=== PATIENT | female | born 1950 | race Caucasian/White ===

== ENCOUNTER → 2017-12-29 02:01 | Outpatient (CLI) | payer MEDICARE, OTHER, SELFPAY ==
[2017-12-29 11:07] LABS: HCT 40.3 % (36.0-46.0); Mean Corp. HGB Concentration 32.3 g/dL (32.0-36.0); Mean Corpuscular Hemoglobin 27.9 pg (27.0-33.0); Mean Corpuscular Volume 86.5 fL (80-95); Mean Platelet Volume 11.9 fL (8.0-11.0); Platelet Count 182 x1000/uL (130-400); RBC 4.66 m/cumm (4.00-5.20); RBC Distribution Width 14.9 % (11.7-14.6); White Blood Cell Count 6.82 k/cumm (4.4-10.8)
[2017-12-29 11:17] LABS: ALT 18 U/L (12-78); AST 15 U/L (15-37); Albumin 3.6 g/dL (3.4-5.0); Alkaline Phosphatase 89 U/L (46-116); Anion Gap 5.9 mmol/L (3-11); BUN 16 mg/dL (7-18); Bilirubin, Total 0.3 mg/dL (0.2-1.0); CO2 30.1 mmol/L (21.0-32.0); CREATININE 0.67 mg/dL (0.55-1.02); Calcium 8.7 mg/dL (8.5-10.1); Chloride 105 mmol/L (98-107); Cholesterol 276 mg/dL (50-200); Glucose 98 mg/dL (70-100); HDL Cholesterol 54 mg/dL (40-60); LDL CHOLESTEROL 115 mg/dL (<100); Potassium 4.3 mmol/L (3.5-5.1); Sodium 141 mmol/L (136-145); Total Protein 6.5 g/dL (6.4-8.2); Triglyceride 270 mg/dL (30-150)
[2017-12-29 11:38] LABS: Hemoglobin A1C 6.1 % (4.5-6.2)
== END ==
PROVIDERS: PCP Family Medicine; Visit Provider Family Medicine
DX: E78.5 Hyperlipidemia, unspecified (principal); I10 Essential (primary) hypertension; Z86.39 Personal history of other endocrine, nutritional and metabolic disease
CPT/HCPCS: 36415; 80053; 80061; 83721; 85027; 83036

== ENCOUNTER 2018-03-07 00:45 | Outpatient (CLI) | payer MEDICARE, OTHER, SELFPAY ==
--- NOTE | 2018-03-07 06:17 | DI.RAD_ITS ---
SYMPTOM/DIAGNOSIS: LLL PNEUMONIA, J18.1 PA AND LATERAL CHEST: Comparison is made with 06/16/09. Heart size and pulmonary vasculature are within normal limits. The lungs are clear and well expanded. No effusions or pneumothoraces are identified. Degenerative changes are seen in the spine. IMPRESSION: No acute pulmonary process.
[2018-03-07 08:34] LABS: Abs Immature Grans 0.02 k/cumm (0.0-0.09); Absolute Basophil Count 0.05 k/cumm (0.0-0.2); Absolute Eosinophil Count 0.55 k/cumm (0.0-0.7); Absolute Lymphocyte Count 2.56 k/cumm (1.2-3.4); Absolute Monocyte Count 0.65 k/cumm (0.11-0.7); Absolute Neutrophil Count 4.85 k/cumm (1.2-6.7); Basophils % 0.6; Eosinophils % 6.3; HGB 13.5 g/dL (12.0-15.5); Immature Grans % 0.2; Lymphocytes % 29.5; Mean Corp. HGB Concentration 32.9 g/dL (32.0-36.0); Mean Corpuscular Hemoglobin 28.6 pg (27.0-33.0); Mean Corpuscular Volume 86.9 fL (80-95); Mean Platelet Volume 10.5 fL (8.0-11.0); Monocytes % 7.5; Neutrophils % 55.9; Platelet Count 211 x1000/uL (130-400); RBC 4.72 m/cumm (4.00-5.20); RBC Distribution Width 14.5 % (11.7-14.6); White Blood Cell Count 8.68 k/cumm (4.4-10.8)
[2018-03-07 09:45] LABS: ALT 25 U/L (12-78); AST 16 U/L (15-37); Albumin 3.9 g/dL (3.4-5.0); Alkaline Phosphatase 99 U/L (46-116); Anion Gap 4.9 mmol/L (3-11); BUN 19 mg/dL (7-18); Bilirubin, Total 0.3 mg/dL (0.2-1.0); CO2 33.1 mmol/L (21.0-32.0); CREATININE 0.79 mg/dL (0.55-1.02); Calcium 9.3 mg/dL (8.5-10.1); Chloride 101 mmol/L (98-107); Cholesterol 191 mg/dL (50-200); Glucose 95 mg/dL (70-100); HDL Cholesterol 58 mg/dL (40-60); LDL CHOLESTEROL 66 mg/dL (<100); Potassium 4.1 mmol/L (3.5-5.1); Sodium 139 mmol/L (136-145); Triglyceride 197 mg/dL (30-150)
== END 2018-03-07 01:05 ==
PROVIDERS: PCP Family Medicine; Visit Provider Family Medicine
DX: J18.1 Lobar pneumonia, unspecified organism; I10 Essential (primary) hypertension; E78.5 Hyperlipidemia, unspecified
CPT/HCPCS: 36415; 80053; 80061; 83721; 71046; 85025

== ENCOUNTER 2018-12-29 02:22 | Outpatient (CLI) | payer MEDICARE, OTHER, SELFPAY ==
[2018-12-29 08:45] LABS: ALT 20 U/L (14-59); AST 12 U/L (15-37); Albumin 3.8 g/dL (3.4-5.0); Alkaline Phosphatase 90 U/L (46-116); Anion Gap 7.8 mmol/L (3-11); BUN 14 mg/dL (7-18); Bilirubin, Total 0.4 mg/dL (0.2-1.0); CO2 30.2 mmol/L (21.0-32.0); CREATININE 0.78 mg/dL (0.55-1.02); Calcium 9.1 mg/dL (8.5-10.1); Calculated LDL 166 mg/dL; Chloride 103 mmol/L (98-107); Cholesterol 269 mg/dL (50-200); Glucose 104 mg/dL (70-100); HDL Cholesterol 51 mg/dL (40-60); Potassium 3.9 mmol/L (3.5-5.1); Sodium 141 mmol/L (136-145); Triglyceride 264 mg/dL (30-150)
== END 2018-12-29 02:42 ==
PROVIDERS: PCP Family Medicine; Visit Provider Family Medicine
DX: E78.5 Hyperlipidemia, unspecified (principal); I10 Essential (primary) hypertension
CPT/HCPCS: 36415; 80053; 80061

== ENCOUNTER 2019-05-10 01:57 | Outpatient (CLI) | payer MEDICARE, OTHER, SELFPAY ==
[2019-05-10 10:39] LABS: ALT 21 U/L (14-59); Calculated LDL 175 mg/dL; Cholesterol 295 mg/dL (<200); Glucose 98 mg/dL (74-106); HDL Cholesterol 56 mg/dL (40-60); Triglyceride 321 mg/dL (<150)
== END 2019-05-10 02:17 ==
PROVIDERS: PCP Family Medicine; Visit Provider Family Medicine
DX: I10 Essential (primary) hypertension (principal); E78.5 Hyperlipidemia, unspecified
CPT/HCPCS: 36415; 80061; 82947; 84460

== ENCOUNTER 2019-05-24 08:42 | Outpatient (CLI) | payer MEDICARE, OTHER, SELFPAY ==
[2019-05-24 11:39] LABS: Calcium 9.4 mg/dL (8.5-10.1)
[2019-05-25 11:21] LABS: Parathyroid Hormone,Intact 75 pg/mL (19-88)
== END 2019-05-24 09:02 ==
PROVIDERS: PCP Family Medicine; Visit Provider Nurse Practitioner
DX: E55.9 Vitamin D deficiency, unspecified (principal); R07.0 Pain in throat; I10 Essential (primary) hypertension; E78.5 Hyperlipidemia, unspecified
CPT/HCPCS: 36415; 82306; 82310; 83970; 84443

== ENCOUNTER 2019-05-25 01:17 | Outpatient (CLI) | payer MEDICARE, OTHER, SELFPAY ==
--- NOTE | 2019-05-25 13:56 | DI.US_ITS ---
EXAM: US SOFT TISSUE HEAD OR NECK CLINICAL HISTORY: hx parathyroid removal,THROAT PAIN, R07.0 TECHNIQUE: Ultrasound performed using standard protocol. COMPARISON: PELVIS TRANSVAG from 08/28/2015 FINDINGS: Ultrasound of the cervical region was performed to evaluate questionable region of neck pain. No mas s identified. Unremarkable appearance of cervical lymph nodes and thyroid. IMPRESSION: Negative soft tissue ultrasound of cervical region on the left.
== END 2019-05-25 01:37 ==
PROVIDERS: PCP Family Medicine; Visit Provider Nurse Practitioner
DX: R07.0 Pain in throat (principal)
CPT/HCPCS: 76536

== ENCOUNTER 2020-01-10 01:32 | Outpatient (CLI) | payer MEDICARE, OTHER, SELFPAY ==
--- NOTE | 2020-01-10 13:54 | DI.DEXA_ITS ---
EXAM: XR DEXA BONE DENSITY W/WO KIRSTEN CLINICAL HISTORY: POSTMENOPAUSAL SCREENING, Z78.0 TECHNIQUE: COMPARISON: Comparison examination is dated 10/26/2016. FINDINGS: Lateral Spine Image: Unremarkable. No compression deformities identified. Left hip: Total T-Score: -1.6. This compares with -1.4 on the prior examination. Total Z-Score: 0. T- and Z-scores: Consistent with osteopenia and increased fracture risk. Lumbar Spine: Total T-Score: -2.3. This compares with -2.5 on the prior examination. Total Z-Score: -0.1. T- and Z-scores: Osteopenia and increased fracture risk. IMPRESSION: Findings consistent with osteopenia in the lumbar spine and left hip.
== END 2020-01-10 01:52 ==
PROVIDERS: PCP Family Medicine; Visit Provider Family Medicine
DX: Z78.0 Asymptomatic menopausal state; M85.89 Other specified disorders of bone density and structure, multiple sites
CPT/HCPCS: 77080

== ENCOUNTER 2020-01-18 01:06 | Outpatient (CLI) | payer MEDICARE, OTHER, SELFPAY ==
[2020-01-18 12:43] LABS: HCT 46.4 % (36.0-46.0); HGB 14.8 g/dL (11.2-15.7); MCHC 31.9 % (32.0-36.0); MCV 87.9 fL (80-95); MPV 11.3 fL (8.0-11.0); Platelet Count 215 10^3/uL (130-400); RBC 5.28 10^6/uL (3.93-5.22); RDW 14.6 % (11.7-14.6); RDW-SD 46.9 fL; WBC 7.69 10^3/uL (4.4-10.8)
[2020-01-18 13:16] LABS: ALT 22 U/L (14-59); AST 12 U/L (15-37); Albumin 4.1 g/dL (3.4-5.0); Alkaline Phosphatase 89 U/L (46-116); Anion Gap 8.6 mmol/L (3-11); BUN 19 mg/dL (7-18); Bilirubin, Total 0.6 mg/dL (0.2-1.0); CO2 30.4 mmol/L (21.0-32.0); CREATININE 0.82 mg/dL (0.55-1.02); Calcium 9.5 mg/dL (8.5-10.1); Calculated LDL 248 mg/dL (<100); Chloride 103 mmol/L (98-107); Cholesterol 356 mg/dL (<200); Glucose 102 mg/dL (74-106); HDL Cholesterol 65 mg/dL (40-60); Potassium 4.3 mmol/L (3.5-5.1); Sodium 142 mmol/L (136-145); TSH (W/Ref FT4) 1.46 uIU/mL (0.36-3.74); Total Protein 7.3 g/dL (6.4-8.2); Triglyceride 215 mg/dL (<150)
== END 2020-01-18 01:26 ==
PROVIDERS: PCP Family Medicine; Visit Provider Family Medicine
DX: I10 Essential (primary) hypertension (principal); E78.5 Hyperlipidemia, unspecified; G47.411 Narcolepsy with cataplexy
CPT/HCPCS: 36415; 80053; 80061; 85027; 84443

== ENCOUNTER 2020-02-06 00:48 | Outpatient (CLI) | payer MEDICARE, OTHER, SELFPAY ==
--- NOTE | 2020-02-06 13:11 | DI.MAMMO_ITS ---
EXAM: MAMMO SCREENING CLINICAL HISTORY: screening,Z12.31 TECHNIQUE: Mammograms were interpreted according to the usual protocol including computer analysis w [employer] CAD system, tomosynthesis and C-view imaging. COMPARISON: FINDINGS: The breasts are of moderate density with fairly symmetrical distribution fibroglandular tissue. No do minant mass or clumped microcalcification is identified in either breast. The current examination is compared with previous examinations including September 2016 and there has been no gross interval change i n appearance in comparison with the prior studies. IMPRESSION: No specific evidence of malignancy at this time. Routine screening examinations are suggested at year ly intervals in this age group according to the ACS ACR guidelines. BI-RADS Category 1 - Negative Breast Density - Category B - Scattered areas of fibroglandular density
== END 2020-02-06 01:08 ==
PROVIDERS: PCP Family Medicine; Visit Provider Family Medicine
DX: Z12.31 Encounter for screening mammogram for malignant neoplasm of breast (principal)
CPT/HCPCS: 77063; 77067

== ENCOUNTER 2020-05-08 02:20 | Outpatient (CLI) | payer MEDICARE, OTHER, SELFPAY ==
[2020-05-08 13:14] LABS: ALT 23 U/L (14-59); Calculated LDL 94 mg/dL (<100); Cholesterol 198 mg/dL (<200); HDL Cholesterol 57 mg/dL (40-60); Triglyceride 238 mg/dL (<150)
== END 2020-05-08 02:40 ==
PROVIDERS: PCP Family Medicine; Visit Provider Family Medicine
DX: E78.5 Hyperlipidemia, unspecified (principal)
CPT/HCPCS: 36415; 80061; 84460

== ENCOUNTER 2021-03-16 03:14 | Outpatient (CLI) | payer MEDICARE, OTHER, SELFPAY ==
[2021-03-16 14:35] LABS: Calculated LDL 116 mg/dL (<100); Cholesterol 228 mg/dL (<200); HDL Cholesterol 56 mg/dL (40-60); Triglyceride 283 mg/dL (<150)
== END 2021-03-16 03:15 | disposition home or self-care (01) ==
LOC: LOS 03:15
PROVIDERS: PCP Nurse Practitioner Family; Visit Provider Nurse Practitioner Family
DX: E78.5 Hyperlipidemia, unspecified (principal)
CPT/HCPCS: 36415; 80061

== ENCOUNTER 2021-11-18 01:11 | Outpatient (CLI) | payer MEDICARE, OTHER, SELFPAY ==
--- OUTSIDE RECORDS SUMMARY | 2021-11-18 01:15 | XMS_ITS | Encounter Summary ---
:1950 Author Organization [facility] [place] [address] Care Team Providers Name Role Phone Cuauhtemoc Zoila Robles APRN Primary Care Provider Encounter Details Date Type Department Care Team Description 03/07/2017 Office Visit General Surgery at De[facility] Waters S/James parathyroidectomy MIGUEL MD Jamaal [facility] [address] [place], [place] GENERAL SURGERY [address] [place] [address] [phone] Social History Tobacco Use Types Packs/Day Years Used Date Never Smoker Smokeless Tobacco: Never Used Alcohol Use Standard Drinks/Week Comments Yes 1 (1 standard drink = 0.6 oz pure alcoho l) occasional Alcohol Habits Answer Date Recorded How often do you have a drink containing alcohol? Not asked How many drinks containing alcohol do you have on a typical Not asked day when you are drinking? How often do you have six or more drinks on one occasion? No t asked Comment: occasional 01/11/2017 Sex Assigned at Date Recorded Not on file documented as of this encounter Last Filed Vital Signs Vital Sign Reading Time Taken Comments Blood Pressure - - Pulse - - Temperature - - Respiratory Rate - - Oxygen Saturation - - Inhaled Oxygen Concentration - - Weight 76.2 kg (167 lb 14.4 oz) 03/07/2017 10:03 AM EST Height - - Body Mass Index 30.71 12/09/2016 10:09 AM EDT documented in this encounter Progress Notes Dea Waters MD - 03/07/2017 10:45 AM EST Parathyroidectomy Post-Op Visit Subjective: Ms. Eloisa Hinson is a very pleasant 67 y.o. year old female who is 6 weeks s/p left lower parathyroidectomy for primary hyperparathyroidism. She is doing very well without complaints. She is not having hypocalcemic symptoms or issues with pain or difficulty swallowing. Exam: There were no vitals filed for this visit. Healing anterior neck incision with underlying healing ridge. No hematoma or seroma. Voice appears normal. Pathology results: A - Left lower parathyroid Parathyroid adenoma, ??with adjacent thymic tissue Labs: Lab Results Component Value Date CALCIUM 10.0 03/07/2017 Assessment and Plan: Ms. Eloisa Hinson is a very pleasant 67 y.o. year old female s/p targeted parathyroidectomy for primary hyperparathyroidism who is doing very well post- operatively without evidence of complications. Idiscussed the pathology results with the patient and recommended no further treatment. Calcium was checked today and was normal. She does not need to continue taking post-operative supplemental doses of calcium and vitamin D. I did encourage her to discuss calcium supplementation for general bone health purposes with her PCP. I explained that she should have her serum calcium checked annually, and that we do not need to follow PTH levels unless her calcium level rises again. I discussed scar massage with vitamin E to aid in incisional appearance and discussed the importanceof UV light protection on scar healing. Overall, she is doing very well post-operatively and I recommended follow up with me on an as neededbasis hereafter. documented in this encounter Plan of Treatment Not on filedocumented as of this encounter Visit Diagnoses Diagnosis S/P parathyroidectomy Other postprocedural status documented in this encounter Care Teams Experience Planning Strategist Relationship Specialty Start Date End Date Zoila Posadas APRN PCP - General Family Medicine 10/27/16 documented as of this encounter
--- OUTSIDE RECORDS SUMMARY | 2021-11-18 01:15 | XMS_ITS | Encounter Summary ---
:1950 Author Organization [facility] [place] [address] Care Team Providers Name Role Phone Cuauhtemoc Zoila Robles APRN Primary Care Provider Encounter Details Date Type Department Care Team Description 03/07/2017 Laboratory Appointment Lab 3L [facility] [place] [address] Social History Tobacco Use Types Packs/Day Years [...] on file documented as of this encounter Plan of Treatment Not on filedocumented as of this encounter Procedures Procedure Name Priority Date/Time Associated Diagnosis Comme nts CALCIUM STAT 03/07/2017 9:41 AM S/P parathyroidectomy Results for this EST procedure are i n the results section. documented in this encounter Results Calcium (03/07/2017 9:41 AM EST) P athologist Signature Calcium 10.0 8.5 - 10.5 DEBI [place] mg/dL [facility] Specimen Anatomical Collection Method Collection Time Receive d Time (Source) Location / / Volume Laterality Blood specimen 03/07/2017 9:41 AM 017 9:50 (specimen) EST AM EST Resulting Agency Comment Spec In Lab Dea Waters MD CHEMISTRY ORDERABLES Performing Organization Address City/State/ZIP Code Phon e Number [place] [phone] documented in this encounter Visit Diagnoses Diagnosis S/P parathyroidectomy Other postprocedural status documented in this encounter Care Teams Process Development Technician Relationship Specialty Start Date End Date Zoila Posadas APRN PCP - General Family Medicine 10/27/16 documented as of this encounter
--- OUTSIDE RECORDS SUMMARY | 2021-11-18 01:15 | XMS_ITS | Clinical Summary ---
:1950 Author Organization [facility] [place] [address] Care Team Providers Name Role Phone Cuauhtemoc Zoila Robles APRN Primary Care Provider Allergies No known active allergies Medications Medication Sig Dispensed Refills Start Date End Date Status Cholecalciferol, Take 6,000 Units 0 Active Vitamin D3, 5,000 unit by mouth daily. Tablet cyanocobalamin 1,000 Take 1,000 mcg by 0 Active mcg Tablet mouth daily. aspirin 81 mg Tablet, Take 81 mg by 0 Active Delayed Release (E.C.) mouth daily. lisinopril Take 1 tablet by 90 tablet 0 11/10/2016 A ctive (PRINIVIL;ZESTRIL) 20 mouth daily. PCP mg Tablet to take over prescribing once script runs out. acetaminophen Take 2 tablets by 30 tablet 1 01/19/2017 Active (TYLENOL) 325 mg mouth every 4 Tablet hours as needed for Pain. Additional Information Patient not taking. 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 Primary hyperparathyroidism 09/24/2014 Parathyroid adenoma 09/24/2014 Hypercalcemia 09/24/2014 Osteopenia 09/24/2014 Transient confusion 09/24/2014 Disturbed concentration 09/24/2014 Lichen sclerosus et atrophicus 08/06/2013 Immunizations Name Administration Dates Next Due Influenza Vaccine PF, Quadrivalent 04/07/2015 Influenza Vaccine, Live, Intranasal, Quadrivalent 03/04/2008 Pneumococcal Polyvalent 23 06/24/2014 Td Vaccine, Absorbed, PF, Adult 06/19/2012, 01/29/2002 Tdap Vaccine 06/19/2012 Social History Tobacco Use Types Packs/Day Years [...] Assigned at Date Recorded Not on file Last Filed Vital Signs Vital Sign Reading Time Taken Comments Blood Pressure 164/102 01/19/2017 11:15 AM EDT Pulse 70 01/19/2017 6:19 AM EDT Temperature 36.6 ??C (97.9 ??F) 01/19/2017 9:58 AM EDT Respiratory Rate 14 01/19/2017 10:45 AM EDT Oxygen Saturation 91% 01/19/2017 11:15 AM EDT Inhaled Oxygen Concentration - - Weight 76.2 kg (167 lb 14.4 oz) 03/07/2017 10:03 AM EST Height 157.5 cm (5' 2) 12/09/2016 10:09 AM EDT Body Mass Index 30.71 12/09/2016 10:09 AM EDT Plan of Treatment Health Maintenance Due Date Last Done Comments Covid-19 Vaccine (#1) 01/27/1955 Hepatitis C Screening 01/27/1966 Lipid Screening 01/27/1966 Breast Cancer Share Decision Needed 1988 Colonoscopy 01/27/1993 Breast Cancer screening 01/27/1998 Zoster vaccine (1 of 2) 01/27/1998 Bone Density Scan 01/27/2013 Pneumoccocal Vaccine: 65+ (2 - PCV) 06/24/2015 06/24/2014 Influenza (Flu) vaccine (1 of 1 - 12/31/2021 04/07/2015, Influenza standard series) Tetanus vaccine 06/19/2022 06/19/2012, 06/19/2012, 01/29/2002 Tdap adult Completed 06/19/2012 Insurance Payer Benefit Plan / Subscriber ID Effective Dates Phone Addre ss Type Group MEDICARE MEDICARE PART A [id number] 2012-Present [phone] SEC[address] & [address] [place] [id number] LIZBETH NIEVES [id number] 1990-Domenico [facility] OFFICE OF [facility] [address] [address] [place] [address] Advance Directives Documents on File Type Date Recorded Patient Insurance Verification Specialist Explanati on Advance Directives and Living 01/12/2017 11:46 AM Will Latest Code Status on File Code Status Date Activated Date Inactivated Comments Full Code 01/19/2017 7:08 AM 01/19/2017 12:33 PM Does patient have capacity to make decision: Yes Care Teams [employer] Crewmember Relationship Specialty Start Date End Date Zoila Posadas APRN PCP - General Family Medicine 10/27/16
--- OUTSIDE RECORDS SUMMARY | 2021-11-18 01:15 | XMS_ITS | Encounter Summary ---
:1950 Author Organization [facility] [place] [address] Care Team Providers Name Role Phone Cuauhtemoc Zoila Robles APRN Primary Care Provider Encounter Details Date Type Department Care Team Description 01/20/2017 Telephone General Surgery at [facility] Dea Waters MD [facility] [place] [address] GENERAL SURGERY [phone] [place] [phone] (Wo rk) Social History Tobacco Use Types Packs/Day Years [...] on file documented as of this encounter Miscellaneous Notes Telephone Encounter - Dea Waters MD - 01/20/2017 9:11 AM EDT Contacted by patient's granddaughter. Ms. Hinson has been throwing up since 2am, not on any narcotics. Ate a small amount last night, but unable to eat this morning. Has had a BM. Vomit has been what she's eaten. Feels like she has a head cold, has a headache around her face, jaw hurts, putting cold cloth. Doesn't typically get headaches. BP 137/73 range. Wondering whether she should take lisinopril 20mg, which I said she should. Incision clean. No significant swelling. No numbness/tingling. Told patient's granddaughter to continue supportive care. If vomiting does not resolve, she should go to her PCP or the ED. This is likely residual from anesthesia. documented in this encounter Plan of Treatment Not on filedocumented as of this encounter Visit Diagnoses Not on filedocumented in this encounter Care Teams Automatic Mounter Relationship Specialty Start Date End Date Zoila Posadas APRN PCP - General Family Medicine 10/27/16 documented as of this encounter
--- OUTSIDE RECORDS SUMMARY | 2021-11-18 01:15 | XMS_ITS | Encounter Summary ---
:1950 Author Organization [facility] [address] Care Team Providers Name Role Phone Cuauhtemoc Zoila Robles APRN Primary Care Provider Encounter Details Date Type Department Care Team Description 01/21/2017 Telephone General [facility] Dea Waters MD [facility] [place] [address] GENERAL SURGERY [phone] [place] [phone] (Wo rk) Social History Tobacco Use Types [...] Telephone Encounter - Dea Waters MD - 01/21/2017 2:31 PM EDT I called Ms. Eloisa Hinson today to discuss the results of her pathology. Specifically, this demonstrated A - Left lower parathyroid Parathyroid adenoma, ??with adjacent thymic tissue. She is doing well. She feels much better than she did yesterday. The vomiting stopped, she is able to eat, and she feels much stronger. Her voice sounds normal. She is not complaining of perioral numbness/tingling, numbness/tingling in the hands, or muscle spasms. She will taper off her calcium supplementation. I answered her questions, and we will discuss further at her regularly-scheduled postoperative follow up appointment. documented in this encounter Plan of Treatment Not on filedocumented as of this encounter Results Calcium (03/07/2017 9:41 AM EST) athologist Signature Calcium 10.0 8.5 - 10.5 [facility] mg/dL [facility] Specimen Anatomical Collection Method Collection Time Receive d Time (Source) Location / / Volume Laterality Blood specimen 03/07/2017 9:41 AM 017 9:50 (specimen) EST AM EST Resulting Agency Comment Spec In Lab Dea Waters MD CHEMISTRY ORDERABLES Performing Organization Address City/State/Z[place] [address] documented in this encounter Visit Diagnoses Diagnosis S/P parathyroidectomy Other postprocedural status documented in this encounter Care Teams Rotating Field Assembler Relationship Specialty Start Date End Date Zoila Posadas APRN PCP - General Family Medicine 10/27/16 documented as of this encounter
--- OUTSIDE RECORDS SUMMARY | 2021-11-18 01:16 | XMS_ITS | Encounter Summary ---
:1950 Author Organization [facility] [place] [address] Care Team Providers Name Role Phone Zoila Posadas Travis OKEEFE Primary Care Provider Reason for Visit Reason Comments Establish Care PRIMARY HYPERPARATHYROIDISM Consultation (Routine) - Closed Specialty Diagnoses / Procedures Referred By Contact Refer red To Contact General Surgery Diagnoses Primary hyperparathyroidism Noemy Bay Sorensen, Meredith MD J, MD [facility] [place] [address] [place] [address] Fax: Referral ID Status Reason Start Date Expiration Date Visits V isits Requested Authorized [id number] Closed Consult, 11/10/2016 11/10/2017 1 1 Test & Treat Encounter Details Date Type Department Care Team Description 12/09/2016 Office Visit General Surgery at [facility] Hyperparathyroidism, KYLER Hinton MD [facility] [address] [place] GENERAL SURGERY [address] [place] [address] [phone] (Wo rk) Social History Tobacco Use Types Packs/Day Years Used Date Never Smoker Smokeless Tobacco: Never Used Sex Assigned at Date Recorded Not on file documented as of this encounter Last Filed Vital Signs Vital Sign Reading Time Taken Comments Blood Pressure 176/81 12/09/2016 10:09 AM EDT Pulse 72 12/09/2016 10:09 AM EDT Temperature - - Respiratory Rate 16 12/09/2016 10:09 AM EDT Oxygen Saturation 97% 12/09/2016 10:09 AM EDT Inhaled Oxygen Concentration - - Weight 74.4 kg (164 lb) 12/09/2016 10:09 AM EDT Height 157.5 cm (5' 2) 12/09/2016 10:09 AM EDT Body Mass Index 30 12/09/2016 10:09 AM EDT documented in this encounter Progress Notes [facility] MD - 12/09/2016 10:15 AM EDT Endocrine Surgery Initial Consultation HPI: Ms. Eloisa Hinson is a very pleasant 66 y.o. year old female who presents for evaluation of primaryhyperparathyroidism as a referral from Dr. Bay. Her hypercalcemia was initially detected a few years ago, and in fact she was worked up for hyperparathyroidism in 2014. At that time, Ca was 11.1with PTH 195. Her DEXA scan showed a T score of -2.8 in the forearm. She was also complaining of increasing memory problems and confusion, which were felt to be out of proportion to her hyperparathyroidism. She was not referred to surgery because of her lack of typical symptoms of hyperparathyroidism, and was referred for neurological workup, which was not done. She was re-referred to endocrinology because an updated DEXA scan showed significant decline in her forearm BMD (now with T score -4.4). There is not a recent history of fractures. There is not history of nephrolithiasis. She reports symptoms of hyperparathyroidism including fatigue,memory loss, nocturia x1, occasional constipation, and b ilateral wrist pain. There is no history of previous anterior neck surgery. She has no family history of endocrinopathies, hypercalcemia or endocrine malignancy. She presents today for consideration ofsurgical management of her hyperparathyroidism. Recent labs: Serum calcium 10.8 mg/dL PTH 245 pg/mL Vitamin D 27 ng/mL Ionized calcium N/A mmol/L Phosphorus N/A mg/dL 24 hr urine calcium N/A mg/24hr Recent studies: Recent DEXA scan: osteoporosis (lowest T score -4.4 in the forearm) Sestamibi scan ([facility], 2015): possible left lower parathyroid abnormality Cervical ultrasound has not yet been performed. Past Medical History: Diagnosis Date ??? 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 when her dog was hit by a car) ??? Hyperparathyroidism ??? Hypertension ??? Osteoporosis Past Surgical History: Procedure Laterality Date ??? INGUINAL HERNIA REPAIR Left Current Outpatient Prescriptions on File Prior to Visit Medication Sig Dispense Refill ??? lisinopril (PRINIVIL;ZESTRIL) 20 mg Tablet Take 1 tablet by mouth daily. PCP to take over prescribing once script runs out. 90 tablet 0 ??? Cholecalciferol, Vitamin D3, 5,000 unit Tablet Take 6,000 Units by mouth daily. ??? cyanocobalamin 1,000 mcg Tablet Take 1,000 mcg by mouth daily. ??? aspirin 81 mg Tablet, Delayed Release (E.C.) Take 81 mg by mouth daily. No current facility-administered medications on file prior to visit. Allergies as of 12/09/2016 ??? (No Known Allergies) Family History: Father of liver issues. Mother of abdominal cancer. Brother living with pancreatic cancer. Sister of heart problems and some unspecified cancer. No thyroid cancer. No pituitary, pancreas or adrenal tumors. No parathyroid disease. Social History: retired seamstress. . 4 children, 10 grandchildren, and 4 great-grandchildren. Nonsmoker. Occasional glass of wine. Very active--stacks wood, pulls it on a sled. No professional public speaking or singing Review of Systems: Negative/Normal Positive/Abnormal Energy Level [] Fatigue Fever [x] Appetite [x] Weight Loss/Gain [x] ENT [x] Cardiovascular [x] Respiratory [x] Gastrointestinal [x] Bleeding [x] Bruising [x] Genitourinary [x] Musculoskeletal [] Some aching in bones (wrists) Endocrine [x] Neuro [x] Psych [] Has episodes of cataplexy with traumatic events (i.e. When dog was hit by a car, she stood in the middle of the road) Encounter Vitals: BP 176/81 (BP Location (NBP): Right arm, Patient Position: Sitting, BP Cuff Sizes: Adult (25-34 cm)) Pulse 72 Resp 16 Ht 157.5 cm (5' 2) Wt 74.4 kg (164 lb) SpO2 97% BMI 30 kg/m2 Physical Exam: System Normal Abnl Findings General [x] [] Well nourished, appears well Skin [x] [] Warm and dry Neck [x] [] No thyromegaly, no masses, trachea midline Lymph Nodes [x] [] No cervical lymphadenopathy Lungs [x] [] Normal respiratory effort, clear to auscultation bilaterally Cardiovascular [x] [] Regular rate and rhythm, no murmurs Extremities [x] [] Warm, no edema, full ROM Neuro [x] [] Motor intact, voice normal Psych [x] [] Normal mood and affect; responds to questions appropriately Procedures performed this visit: Thyroid, Parathyroid and Cervical Ultrasound I performed a thyroid, parathyroid and cervical ultrasound at the time of the clinic visit today using the 12 mHz linear ultrasound transducer. The thyroid, parathyroid and central and bilateral lateral neck lymph node basins were evaluated. The findings include: Thyroid Isthmus: Thickness: 0.24 cm Nodules: None Right lobe: Lobe: 3.82 x 0.80 x 2.17 cm Nodules: there is a small, hypoechoic nodule measuring 0.82 x 0.76 x 0.89cm Left lobe: Lobe: 3.54 x 1.06 x 1.55 cm Nodules: none In the left lower parathyroid location is a hypoechoic nodule measuring 0.99 x 0.41 x 0.79cm that islocated deep in the central neck inferior to the inferior pole of the thyroid and is located just medial to the medial head of the clavicle Cervical lymph nodes Central neck: Normal ultrasonographic appearing lymph nodes Right lateral neck: Normal ultrasonographic appearing lymph nodes Left lateral neck: Normal ultrasonographic appearing lymph nodes Assessment and Plan: Ms. Eloisa Hinson is a 66 y.o. year old female with symptomatic biochemical primary hyperparathyroidism and a history of worsening osteoporosis--now with severe osteoporosis (T score -4.4) in her forearm. Localization studies including ultrasound and sestamibi scan indicate a left lower parathyroid ab normality. We discussed the typical work up and management of primary hyperparathyroidism. I therefore recommended minimally invasive parathyroidectomy with intraoperative parathyroid hormone monitoring. If IOPTH levels do not decrease appropriately, we will proceed with a bilateral exploration. I discussed the risks of parathyroidectomy with the patient including, but not limited to, nerve injury resulting in voice changes or hoarseness of voice, low calcium related to removal of parathyroid tissue, bleeding which may require reoperation, infection and complications related to anesthesia. She confirmed understanding of these risks and consent was obtained today. Surgery will be scheduled for the soonest mutually convenient date. [facility] Data Patient Characteristics Body mass index is 30 kg/(m^2). Patient Ethnicity & Race Ethnic Group Patient Race OR White Prior neck irradiation: no Prior anterior neck surgery: no Pre-operative laryngoscopy: no Anti-coagulation meds (aspirin, warfarin, clopidogrel, heparin, oral thrombin or factor Xa inhibitors): yes Disease Characteristics Primary Pre-Operative Diagnosis: sporadic primary hyperparathyroidism Persistent/Recurrent Hyperparathyroidism: No Calcium: high 24-hour Urine calcium: not examined GFR decreased: No Ionized calcium: not examined PTH:high [id number] D: low Subjective Symptoms: yes Objective Symptoms: yes Imaging Studies: Localization studies performed: yes Localization study type: ultrasound, sestamibi Ultrasound result: Localized single gland with low confidence Sestamibi result: Localized single gland with high confidence documented in this encounter Plan of Treatment Scheduled Referrals Name Type Priority Associated Diagnoses Order S chedule Referral to Outpatient Routine Primary hyperparathyroidism Ordered: General Surgery Referral 11/10/2016 documented as of this encounter Visit Diagnoses Diagnosis Hyperparathyroidism, primary Primary hyperparathyroidism documented in this encounter Care Teams Security Operations Specialist Relationship Specialty Start Date End Date Zoila Posadas APRN PCP - General Family Medicine 10/27/16 documented as of this encounter
--- OUTSIDE RECORDS SUMMARY | 2021-11-18 01:16 | XMS_ITS | Encounter Summary ---
:1950 [place] [address] Care Team Providers Name Role Phone Cuauhtemoc Zoila Robles APRN Primary Care Provider Encounter Details Date Type Department Care Team Description 01/11/2017 Surgery Main Operating Room [facility] Not Performed Ade Hinton MD PARATHYROIDECTOMY OR [facility] EXPLORATION OF [facility] DR PARATHYROID(S) (WRVU 15.6) [place] [address] 6 [id number] [phone] Social History Tobacco Use Types Packs/Day Years [...] Sign Reading Time Taken Comments Blood Pressure 152/86 01/11/2017 1:11 PM EDT Pulse 72 01/11/2017 1:11 PM EDT Temperature 37.1 ??C (98.8 ??F) 01/11/2017 1:11 PM EDT Respiratory Rate 16 01/11/2017 1:11 PM EDT Oxygen Saturation 99% 01/11/2017 1:11 PM EDT Inhaled Oxygen Concentration - - Weight - - Height - - Body Mass Index - - documented in this encounter Medications at Time of Discharge Medication Sig Dispensed Refills Start Date End Date lisinopril Take 1 tablet by mouth 90 tablet 0 11/10/2016 (PRINIVIL;ZESTRIL) 20 mg daily. PCP to take Tablet over prescribing once script runs out. Cholecalciferol, Vitamin Take 6,000 Units by 0 D3, 5,000 unit Tablet mouth daily. cyanocobalamin 1,000 mcg Take 1,000 mcg by 0 Tablet mouth daily. aspirin 81 mg Tablet, Take 81 mg by mouth 0 Delayed Release (E.C.) daily. documented as of this encounter Plan of Treatment Not on filedocumented as of this encounter Procedures Procedure Name Priority Date/Time Associated Diagnosis Comme nts EKG 12-LEAD Routine 01/11/2017 1:17 PM Parathyroid adenoma Re sults for this EDT procedure are i n the results section . documented in this encounter Results EKG 12 Lead (01/11/2017 1:17 PM EDT) [facility] gist Method Time Signature Ventricular rate 77 BPM MUSE SYSTEM Atrial Rate 77 BPM MUSE SYSTEM P-R Interval 142 ms MUSE SYSTEM QRS Duration 88 ms MUSE SYSTEM Q-T Interval 392 ms MUSE SYSTEM QTC Calculated 443 ms MUSE SYSTEM (Bezet) Calculated R [place] 16 degrees MUSE SYSTEM Calculated T [place] 31 degrees MUSE SYSTEM INTERPRETATION Normal sinus rhythm MUSE SYSTEM Normal ECG No previous ECGs available Confirmed by MD FAUZIA, DENNIS ([id number]) on 01/12/2017 7:51:30 PM Specimen Anatomical Collection Method Collection Time Receive d Time (Source) Location / / Volume Laterality 01/11/2017 1:17 PM 7 7:51 EDT PM EDT Christal Merchant MD ECG ORDERABLES Performing Organization Address City/State/ZIP Code Phon e Number MUSE SYSTEM documented in this encounter Visit Diagnoses Not on filedocumented in this encounter Administered Medications Inactive Administered Medications - up to 3 most recent administrations Medication Order MAR Action Action Date Dose Rate Site lactated Ringers infusion 1,000 mL 1,000 mL, at 100 mL/hr, Intravenous, CON TINUOUS, Starting on Tue01/11/17 at 1330, Until Tue01/11/17 at 1845, Day of Surgery (Day of Proc edure) lidocaine (XYLOCAINE) 10 mg/mL (1 %) inj ection 3 mg 3 mg (0.3 mL), Subcutaneous, ONCE PRN, 1 dose, Startin g on Tue01/11/17 at 1307, Until Tue01/11/17 at 1845, for discomfor t with PIV insertion, Day of Surgery (Day of Procedure), Routine sodium chloride 0.9 % flush 5-20 mL 5-20 mL, Intravenous, EVERY 1 MIN PRN, S tarting on Tue01/11/17 at 1307, Until Tue01/11/17 at 1845, flush, Flush pertains t o all indwelling lines. Flush per protocol found in the job aid using the link provided on this m edication record., Day of Surgery (Day of Procedure), Routine documented in this encounter Active and Recently Administered Medications Times are shown in EDT. Scheduled Medication Order 01/09/2017 01/10/2017 01/11/2017 acetaminophen (TYLENOL) tablet 1,000 mg 1330 (Due) 1,000 mg, Oral, ONCE, 1 dose, Tue 7 at 1330, Administer with SIP of H2O only., Day of Surgery (Day of Procedure), Routine Continuous Medication Order 01/09/2017 01/10/2017 01/11/2017 lactated Ringers infusion 1,000 mL 1330 (Due) 1,000 mL, at 100 mL/hr, Intravenous, CON TINUOUS, Starting Tue01/11/17 at 1330, Until Tue01/11/17 at 1845, Day of Surgery (Day of Procedure) PRN Medication Order 01/09/2017 01/10/2017 01/11/2017 lidocaine (XYLOCAINE) 10 mg/mL (1 %) injection 3 mg 3 mg (0.3 mL), Subcutaneous, ONCE PRN, 1 dose, Starting Tue01/11/17 at 1307, Until Tue01/11/17 at 1845, for discomfort with PIV insertion, Day of Surgery (Day of Procedure), Routine sodium chloride 0.9 % flush 5-20 mL 5-20 mL, Intravenous, EVERY 1 MIN PRN, S tarting Tue01/11/17 at 1307, Until Tue01/11/17 at 1845, flush, Flush pertains to all indwelling lines. Flush per protocol found in the job aid using the link prov ided on this medication record., Day of Surgery (Day of Procedur e), Routine documented in this encounter Care Teams Brand Development Manager Relationship Specialty Start Date End Date Zoila Posadas APRN PCP - General Family Medicine 10/27/16 documented as of this encounter
--- OUTSIDE RECORDS SUMMARY | 2021-11-18 01:16 | XMS_ITS | Encounter Summary ---
:1950 Author Organization [facility] Address [facility] [address] [place] [address] Care Team Providers Name Role Phone Zoila Posadas RECREATION THERAPIST Primary Care Provider Reason for Referral Consultation (Routine) - Closed Specialty Diagnoses / Procedures Referred By Contact Refer red To Contact General Surgery Diagnoses Primary hyperparathyroidism Noemy Bay Sorensen, Meredith MD J, [facility] [address] [facility] [place] [address] Fax: Referral ID Status Reason Start Date Expiration Date Visits V isits Requested Authorized [id number] Closed Consult, 11/10/2016 11/10/2017 1 1 Test & Treat Reason for Visit Consultation (Routine) - Closed Specialty Diagnoses / Procedures Referred By Contact Refer red To Contact Endocrinology Diagnoses Hyperparathyroidism hyperparathyroidism Zoila Posadas, [facility] Endocrinology 3b RECREATION THERAPIST [facility] [address] [place] [address] [place], [place] Phone: [phone] Referral ID Status Reason Start Date Expiration Date Visits V isits Requested Authorized [id number] Closed Consult, 10/28/2016 10/28/2017 1 1 Test & Treat Connection Center Encounter Details Date Type Department Care Team Description 11/10/2016 Office Visit Endocrinology at [facility] [place], [facility] MD Noemy hyperparathyroidism [facility] [address] ENDOCRINOLOGY [phone] [place] [address] Social History Tobacco Use Types Packs/Day Years Used Date Never Smoker Smokeless Tobacco: Never Used Sex Assigned at Date Recorded Not on file documented as of this encounter Last Filed Vital Signs Vital Sign Reading Time Taken Comments Blood Pressure 196/107 11/10/2016 10:01 AM EDT Pulse 75 11/10/2016 10:01 AM EDT Temperature - - Respiratory Rate - - Oxygen Saturation - - Inhaled Oxygen Concentration - - Weight 75.8 kg (167 lb) 11/10/2016 10:01 AM EDT Height 157.5 cm (5' 2) 11/10/2016 10:01 AM EDT Body Mass Index 30.54 11/10/2016 10:01 AM EDT documented in this encounter Progress Notes Noemy Bay MD - 11/10/2016 10:00 AM EDT Endocrinology New Patient Consultation RFC: Referred to Endocrinology by Zoila Posadas for further evaluation of suspected primary hyperparathyroidism. HISTORY OF PRESENT ILLNESS: Ms. Eloisa Hinson is a 66 y.o. year old lady with history significant for primary hyperparathyroidism, evaluated previously in our clinic by Dr. Gallo and Dr. Pitt in 2014, neither of which arepracticing in our clinic any longer. At that time, she had sCa ranging from 10.8 - 11.1 and a sestamibi scan had shown a L inferior parathyroid adenoma. Since 1/3 forearm DEXA measurement showed only mild osteoporosis with a T = -2.8, a neurological consultation was felt to be needed to exclude non-hyperparathyroidism contributors to her cognitive difficulties prior to proceeding with surgical referral in the absence of other surgical indications. It is unclear whether she actually pursued this, as her neurology appt at [facility] appears to have been canceled (per [facility] records). She cannot recall for sure but thinks she did see a neurologist. She was lost to follow-up thereafter. She is being sent back to see us in Endocrinology because recently she had an updated DEXA scan in September 2016 that showed a significant decline in her 1/3 forearm BMD (T= -4.4 now). Her most recent biochemistries in September 2016 showed a PTH 245, sCa 10.8, 25-OH-D 27. still no history of kidney stones or fractures. Still having memory issues, stable. Had difficulty concentrating this morning as well, usually happens early in the morning. Still having mild constipation. She is very interested in surgical treatment of her primary hyperparathyroidism. PAST MEDICAL HISTORY: Patient Active Problem List Diagnosis Date Noted ??? Primary hyperparathyroidism 09/24/2014 ??? Parathyroid adenoma 09/24/2014 ??? Hypercalcemia 09/24/2014 ??? Osteopenia 09/24/2014 ??? Transient confusion 09/24/2014 ??? Disturbed concentration 09/24/2014 MEDICATIONS: Medications 11/10/16 1022 Medication Sig Taking? lisinopril (PRINIVIL;ZESTRIL) 10 mg Tablet Take 10 mg by mouth daily. Yes Cholecalciferol, Vitamin D3, 5,000 unit Tablet Take 6,000 Units by mouth daily. Yes cyanocobalamin 1,000 mcg Tablet Take 1,000 mcg by mouth daily. Yes aspirin 81 mg Tablet, Delayed Release (E.C.) Take 81 mg by mouth daily. Yes ALLERGIES: No Known Allergies SOCIAL HISTORY: History Smoking Status ??? Never Smoker Smokeless Tobacco ??? Never Used FAMILY HISTORY: No family history on file. REVIEW OF SYSTEMS: All 12 systems reviewed and negative except as noted per HPI. PHYSICAL EXAM: Vitals Office Visit from 11/10/2016 in Endocrinology Weight - Scale 75.8 kg (167 lb) Height 157.5 cm (5' 2) BSA (Calculated - sq m) 1.82 sq meters BMI (Calculated) 30.6 Heart Rate 75 BP (!) 196/107 Gen: NAD, AAOx3, speaking full sentences, difficulty remembering things, calm very pleasant demeanor, average habitus Skin: warm and dry Eyes: PERRL, EOMI, anicteric sclerae without injection, no proptosis or lid lag ENT: moist oral mucosa Neck: no thyromegaly, no thyroid nodules, no lymphadenopathy Pulm: CTAB, no stridor Cardiac: reg s1s2, no m/r/g MSK: 5/5 strength in all muscle groups of the upper and lower extremities, no LE edema Neuro: 2+ biceps and patellar DTRs, no clonus, no delay of the relaxation phase, no tremor. ASSESSMENT: 66 yo F with a fairly clear cut case of primary hyperparathyroidism. I do not think any further diagnostic workup is needed. Primary hyperparathyroidism preferentially targets cortical boneso the steep decline in her 1/3 forearm BMD over the past 2 years is consistent with this diagnosis. PLAN: 1. Primary hyperparathyroidism --referral for parathyroidectomy 2. Hypertension --increase lisinopril to 20mg daily for hypertension due to sys 180-190s on 10mg daily - hypertension may improve to some degree after parathyroidectomy as hyperparathyroidism can contribute to hypertension. --PCP to continue managing 3. Follow-up - follow-up plan is pending what happens with the parathyroid surgery. NOEMY BAY MD Vegetable Trimmerdecorative engraver Section of Endocrinology [facility] documented in this encounter Plan of Treatment Scheduled Referrals Name Type Priority Associated Diagnoses Order S chedule Referral to Outpatient Routine Primary hyperparathyroidism Ordered: General Surgery Referral 11/10/2016 documented as of this encounter Visit Diagnoses Diagnosis Primary hyperparathyroidism documented in this encounter Care Teams Italian Teacher Relationship Specialty Start Date End Date Zoila Posadas APRN PCP - General Family Medicine 10/27/16 documented as of this encounter
--- OUTSIDE RECORDS SUMMARY | 2021-11-18 01:16 | XMS_ITS | Encounter Summary ---
:1950 Author Organization [facility] [place] [address] Care Team Providers Name Role Phone Zoila Posadas SARY Primary Care Provider Encounter Details Date Type Department Care Team Description 01/19/2017 Surgery Main Operating Room Carrie Butcher RATHYROIDECTOMY OR Ade Hinton MD EXPLORATION OF [facility] PARATHYROID(S) (WRVU 15.6) [facility] DR Alonzo GENERAL SURGERY [place] [id number] [phone] Social History Tobacco Use Types Packs/Day Years [...] Sign Reading Time Taken Comments Blood Pressure 170/102 01/19/2017 10:25 AM EDT Pulse 70 01/19/2017 6:19 AM EDT Temperature 36.6 ??C (97.9 ??F) 01/19/2017 9:58 AM EDT Respiratory Rate 16 01/19/2017 10:25 AM EDT Oxygen Saturation 95% 01/19/2017 10:25 AM EDT Inhaled Oxygen Concentration - - Weight 72.6 kg (160 lb 0.9 oz) 01/19/2017 6:22 AM EDT Height - - Body Mass Index 29.27 12/09/2016 10:09 AM EDT documented in this encounter Discharge Instructions Discharge InstructionsMica Abarca RN - 01/19/2017 11:32 AM EDT POST ANESTHESIA INSTRUCTIONS Go home, rest, use caution on stairs. Change positions slowly. Do not smoke if you are alone. Diet light to regular as tolerated today. If nausea occurs start with clear liquids and progress slowly. No driving, operating machinery, alcoholic beverages and no important decisions for 24 hours. Monitor IV site for signs and symptoms of infection: increasing redness, swelling, foul drainage, ifoccurs contact M.D. Patients who have had endotrachial tubes (this tube, used by anesthesia department, is passed down your throat after you are asleep, to ensure safe air passage during your operation). A sore throat is normal due to the tube. Cold liquids or soothing lozenges will help ease the discomfort. The generalized muscle aches are due to the medication given to you just before the tube is inserted. As the medication wears off, you may develop muscle soreness, which usually goes away in 12-24 hours. Patient InstructionsJeyson Lopez MD - 01/19/2017 9:52 AM EDT PARATHYROIDECTOMY PATIENT DISCHARGE INSTRUCTIONS What to Expect Following Surgery: Swelling and/or bruising under and around the incision is normal. It is usually greatest on the second or third day following surgery. You may also feel the sensation of swelling or firmness that can last for a month or more Your scar will be most visible for 1-2 months following your operation and will gradually fade over the next 6-8 months. As it heals, a scar often looks more pink or red than the skin around it. You may feel a ???healing ridge?? directly under the incision. This is completely normal and is theresult of swelling, healing, and scar formation. Usually, this will go away when healing is completein 3-6 months. The skin just above and below your incision will feel numb. This will improve over several months but some patients may have long-term decrease in sensation over these areas. You may notice minor difficulty in swallowing which will improve over time. Your voice may be hoarse or weak at first--this is normal and does not mean there was damage done tothe nerves that make the vocal cords move. Your voice will usually go back to normal after several days to a few weeks. Incision Care: Neck incisions heal rapidly--usually within a week or two. The incision can get wet in the shower 24 hours after surgery. However, do not submerge the incisionunderwater (i.e. bath tub, swimming pool, hot tub, etc.) for at least 2 weeks after your operation. Pat the incision dry immediately following your shower. Do not scrub the area vigorously for the next2 weeks. You have a skin glue closure, and you may notice tiny pieces of yellow/white material on your washcloth or there may be a thin clear or whitish crust around the edges of the incision. This is normal. The glue will start to come off about a week after surgery. Do not pull off the skin glue in order to allow time for the incision to heal completely. Do not use any ointments/salves/Vitamin E on the incision until after your first follow-up appointment as these may impair early wound healing. Incisions are sensitive to sunlight. For at least 1 year after surgery you should use sunscreen whenoutdoors for long periods of time to prevent permanent darkening of the scar. This includes tanning booths. Pain Management: You may apply ice or cold packs to the incision for 15-20 minutes several times a day for the first 2-3 days following surgery to help with discomfort. You may feel some stiffness/soreness in your shoulders, back, and neck. This may take a few days or weeks to go away completely. You may use moist warm heat, a heating pad, or massage to these areas for 15-20 minutes several times a day. Do not be afraid to move your neck - gently flexing and stretching your neck muscles and light massage will help prevent stiffness NSAIDs (non-steroidal anti-inflammatory drugs) such as ibuprofen (Motrin, Advil) and naproxen (Naprosyn, Aleve) or acetaminophen (Tylenol) are most helpful for the pain experienced after surgery. Generally, these are even more effective than the stronger pain medications (narcotics or opioids) after thyroid surgery. Take NSAIDS or Tylenol every 6 hours [id number] for the first 3-5 days following surgery to help minimize pain. Use opioid (oxycodone) pain medications for severe pain, and never take with alcohol. Opioid medications typically cause constipation, so we suggest using a stool softener in addition (metamucil, colace...etc.). Diet & Activity: No restrictions in your diet are necessary. Activity as tolerated by your comfort level. You may return to work as soon as you would like. However, if your job requires heavy lifting or strenuous physical activity, your surgeon may ask you to wait to return to work until after your two-week post-operative appointment. NO DRIVING for at least 8 hours following any dose of an opioid pain medication if one was prescribed for you. Calcium Supplementation: Your body???s calcium levels may temporarily fall following a parathyroid operation. Therefore, all patients should take calcium supplementation after surgery. We recommend that you purchase your calcium supplement from a pharmacy or grocery store, as it is available [id number] and does not require a prescription. The cost is approximately $10-$15 per bottle. The calcium supplement we recommendis Citrical Maxium (calcium citrate 630mg with 500IU Vitamin D3). You need to take 2 tabs (to equal a dose of 1260mg calcium and 1000 IU of Vitamin D3) three times daily unless instructed differently by your surgeon. If you notice a tingling sensation in your hands, feet, around your mouth, or develop muscle spasms,please call the General Surgery nurse at [phone], since this may mean that you need more calcium. Pathology Report: All specimens removed at surgery are analyzed by a pathologist. This report usually takes approximately 4 business days to be ready. Dr. Butcher will call you with this report as soon as it is available. Follow-up Appointment: Will be scheduled with Dr. Butcher in 6 weeks with a lab appointment to check your calcium Date and time will be mailed to you Please call [phone] to confirm the date and time of your appointment if you do not hear from usin the next 2 weeks Call Doctor for: Call if you have trouble talking or breathing (call 911 if this is severe) Call if you develop numbness or tingling around your mouth/lips or on the tips of your fingers or your hands, as this may mean your calcium is low. This may also be related to pain medication, where the breathing tube was positioned against your lips, the positioning of your arms and hands in the operating room, or how you were positioned when sleeping. If the sensation does not go away within a halfhour, or if it worsens prior to that, call us immediately so we can discuss increasing your calcium if we think you need it. Call if your incision becomes red or begins to drain fluid. Call if you have fevers greater than 101 degrees F Call if you have persistent nausea or vomiting (this may be related to opioid pain medications). Call if you begin feeling worse, rather than better, several days after surgery. Phone number for questions: [phone] before 5 PM on weekdays [phone] after 5 PM and on weekends/holidays. Ask for the general surgery resident government relations manager. Future Appointments Date Time Provider Department Center 02/10/2017 10:30 AM LAB, THREE L Lab 3L [facility] 02/10/2017 11:30 AM Carrie Butcher MD [facility] documented in this encounter Medications at Time of Discharge Medication Sig Dispensed Refills Start Date End Date acetaminophen (TYLENOL) Take 2 tablets by 30 tablet 1 01/19 325 mg Tablet mouth every 4 hours as needed for Pain. lisinopril Take 1 tablet by 90 tablet 0 11/10/2016 (PRINIVIL;ZESTRIL) 20 mg mouth daily. PCP to Tablet take over prescribing once script runs out. Cholecalciferol, Vitamin Take 6,000 Units by 0 D3, 5,000 unit Tablet mouth daily. cyanocobalamin 1,000 mcg Take 1,000 mcg by 0 Tablet mouth daily. aspirin 81 mg Tablet, Take 81 mg by mouth 0 Delayed Release (E.C.) daily. oxyCODONE (ROXICODONE) 5 Take 1 tablet by 5 tablet 0 01/1903/07/2017 mg Tablet mouth every 4 hours as needed for Pain. documented as of this encounter Progress Notes Dev Weaver RN - 01/19/2017 12:30 PM EDT Pt A+Ox4, VSS, tolerating PO intake. Pt states pain is well managed and has no c/o nausea. AVS reviewed with Pt and daughter and they verbalized understanding and have no questions or concerns at this time. Pt D/C to home with daughter. documented in this encounter H&P Jeyson Torrez MD - 01/19/2017 7:07 AM EDT General Surgery Interval H&P Eloisa Hinson,[id number] ID: [id number] F with hypercalcemia and evidence of a parathyroid adenoma presenting for parathyroidectomy. Since last seen in clinic, no changes to medications, no fevers, chills, headaches, chest pain/thigtness, new cough, nausea, emesis, constipation, diarrhea, difficulties urinating, one sided numbness or tingling sensation Past Medical History: Diagnosis Date ??? 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 when her dog was hit by a car) ??? Hyperparathyroidism ??? Hypertension ??? Osteoporosis Past Surgical History: Procedure Laterality Date ??? INGUINAL HERNIA REPAIR Left No current facility-administered medications on file prior to encounter. Current Outpatient Prescriptions on File Prior to Encounter Medication Sig Dispense Refill ??? lisinopril (PRINIVIL;ZESTRIL) [...] Take 81 mg by mouth daily. No Known Allergies Vitals: 01/19/17 0619 01/19/17 0622 BP: 184/81 Pulse: 70 Resp: 16 Temp: 36.6 ??C (97.9 ??F) SpO2: 96% Weight: 72.6 kg (160 lb 0.9 oz) Exam: General: Alert and oriented x4 Heart: RRR Lungs: Vesicular bilateral Abdomen: Soft, non distended/tender, + BS Extremities: Warm, no edema No results found for this or any previous visit (from the past 24 hour(s)). Assessment/Plan Proceed with scheduled procedure Procedure(s): PARATHYROIDECTOMY OR EXPLORATION OF PARATHYROID(S) (WRVU 15.6) FACIAL NERVE MONITORING, SETUP LARYNGEAL (WRVU 1.57) documented in this encounter Miscellaneous Notes Op Note - Carrie Butcher MD - 01/19/2017 9:07 AM EDT [facility] Operative Note Patient Name: Eloisa Hinson : [id number] MR#: [id number] Case Date: 01/19/2017 Surgeon: Surgeon(s) and Role: * Carrie Butcher MD - Primary * Jeyson Lopez MD - Resident-Surgeon Chief Preoperative diagnosis: PRIMARY HPT Postoperative diagnosis: PRIMARY HPT Procedure(s) (LRB): PARATHYROIDECTOMY OR EXPLORATION OF PARATHYROID(S) (WRVU 15.6) (N/A) FACIAL NERVE MONITORING, SETUP LARYNGEAL (WRVU 1.57) (N/A) Anesthesia: General with NIM tube; 10cc 0.25% marcaine with epinephrine Estimated Blood Loss: 13cc Specimens removed during surgery: left lower parathyroid Drains: Surgical Closure: Primary Closure - closure of ALL tissue levels during the original surgery regardless of wires, wickes, drains, or other devices extruding through the incision Disposition: awakened from anesthesia, extubated and taken to the recovery room in a stable condition, having suffered no apparent untoward event. Condition: doing well without problems (Please see the Surgical Encounter Summary for any Implant and Specimen details pertinent to this patient.) HPI/Surgical Indications: Ms. Eloisa Hinson is a very pleasant 66 y.o. year old female who presentsfor evaluation of primary hyperparathyroidism as a referral from Dr. Bay. Her hypercalcemia was initially detected a few years ago, and in fact she was worked up for hyperparathyroidism in 2015.At that time, Ca was 11.1 with PTH 195. Her DEXA scan showed a [...] scan showed significant decline in her forearm BMD(now with T score -4.4). There is not a recent history of fractures. There is not history of nephrolithiasis. She reports symptoms of hyperparathyroidism including fatigue,memory loss, nocturia x1, occasional constipation, and bilateral wrist pain. There is no history of previous anterior neck surgery. She has no family history of endocrinopathies, hypercalcemia or endocrine malignancy. She presents today for consideration of surgical management of her hyperparathyroidism. Procedure Description: The patient was taken to the operating room and placed on the operating tablein the supine position. Adequate general anesthesia was completed by anesthesiology with the [employer] recurrent laryngeal nerve monitoring system. A crease on the anterior neck was identified and marked, and this area was infiltrated with 10 cc 0.25% marcaine with epinephrine. She was then prepped and draped in the usual sterile fashion over the anterior neck. A timeout procedure was done, and all members of the OR team were in agreement. The procedure began by making a curvilinear incision along the lower anterior neck along the previously marked skin crease with a scalpel. Electrocautery was used to continue dissection through the subcutaneous tissue and through the platysma muscle. Subplatysmal flaps were created in cranial and caudal directions. The median raphe of the strap muscles was divided with electrocautery. We developed a plane between the left strap muscles down to the left internal jugular vein, and ines a baseline PTH from the internal jugular vein. IOPTH levels are noted in the below. We then dissected the strap muscles off the thyroid lobe out to its lateral aspect. We dissected into the paratracheal and paraesophageal space and identified the recurrent laryngeal nerve as it ran into the tracheoesophageal groove and carefully preserved this. We identified a left lower intrathymic parathyroid gland which was enlarged. We dissected it free onto its vascular pedicle. We ines a pre-excision PTH from the internal jugular vein. We then removed the left lower parathyroid gland and a small attached piece of thymus gland. We ligated its vascular pedicle with a 3-0 silk sutures, and passed it off the table as a permanent specimen. At 10 and 15 minutes, we ines post-excision PTHs from the internal jugular vein. The decre asing values and kinetics of the IOPTH indicated a biochemical cure. We then irrigated the operativefield. A Valsalva to 30 millimeters of mercury was accomplished by Anesthesia. Hemostasis was assured. The recurrent laryngeal nerve was tested again, and it was fully functional on the nerve monitor. We placed Surgicel in the paratracheal space, closed the strap muscles using running 3-0 Vicryl suture, the platysma with interrupted 3-0 Vicryl suture, and the skin with running 5-0 Prolene subcuticular suture, followed by placement of Dermabond and removal of the Prolene suture. IOPTH findings: Baseline: 215 pg/mL Preexcision 163 pg/mL 10-min post-excision 48 pg/mL 15-min post-excision 39 pg/mL Infection Bundle used? N/A Attestation: Case Date: 01/19/2017 I was present and I participated during the entire procedure (does not need to include opening and closing). CARRIE BUTCHER MD 01/19/2017 Brief Op Note - Carrie Butcher MD - 01/19/2017 9:06 AM EDT Brief Operative Note Patient Name: Eloisa Hinson : [id number] MR#: [id number] Case Date: 01/19/2017 Surgeon: Surgeon(s) and Role: * Carrie Butcher MD - Primary * Jeyson Lopez MD - Resident-Surgeon Chief Preoperative diagnosis: PRIMARY HPT Postoperative diagnosis: PRIMARY HPT Procedure(s) (LRB): PARATHYROIDECTOMY OR EXPLORATION OF PARATHYROID(S) (WRVU 15.6) (N/A) FACIAL NERVE MONITORING, SETUP LARYNGEAL (WRVU 1.57) (N/A) Anesthesia: General with NIM tube; 10cc 0.25% marcaine with epinephrine Findings: enlarged intrathymic left lower parathyroid gland. Left RLN intact. IOPTH findings: Baseline: 215 pg/mL Preexcision 163 pg/mL 10-min post-excision 48 pg/mL 15-min post-excision 39 pg/mL Complications: none apparent Fluids: 900cc Intraprocedure Crystalloid Total None Estimated Blood Loss: 13cc Drains: none Specimens removed: left lower parathyroid gland Disposition: awakened from anesthesia, extubated and taken to the recovery room in a stable condition, having suffered no apparent untoward event. Condition: doing well without problems Attestation: Case Date: 01/19/2017 I was present and I participated during the entire procedure (does not need to include opening and closing). (Please see the Surgical Encounter Summary for any Implant and Specimen details pertinent to this patient.) documented in this encounter Plan of Treatment Not on filedocumented as of this encounter Procedures Procedure Name Priority Date/Time Associated Comments Diagnosis INTRAOPERATIVE PTH STAT 01/19/2017 9:06 Result s for this ([facility]) AM EDT procedure are i n the results section. INTRAOPERATIVE PTH STAT 01/19/2017 8:58 Result s for this ([facility] EDT procedure are i n the results section. SURGICAL PATHOLOGY REPORT Routine 01/19/2017 8:50 Results for this AM EDT procedure are i n the results section. SPECIMEN TO PATHOLOGY Routine 01/19/2017 8:50 Res ults for this AM EDT procedure are i n the results section. INTRAOPERATIVE PTH STAT 01/19/2017 8:44 Result s for this ([facility]) AM EDT procedure are i n the results section. INTRAOPERATIVE PTH STAT 01/19/2017 8:35 Result s for this ([facility] AM EDT procedure are i n the results section. FACIAL NERVE MONITORING, Yes 01/19/2017 7:30 PRIMARY HPT SETUP LARYNGEAL (WRVU AM EDT 1.57) PARATHYROIDECTOMY OR Yes 01/19/2017 7:30 PRIMARY HPT EXPLORATION OF AM EDT PARATHYROID(S) (WRVU 15.6) documented in this encounter Results Intraoperative PTH (01/19/2017 9:06 AM EDT) P athologist Signature Intraoper PTH 39 9 - 77 [facility] YAZ pg/mL [facility] Comment: 15-minute post-excision called to Laurie BROWER, 01/19/17 09:39 An updated ioPTH assay reagent was imple mented 07/21/16. Please note the modified reference interval. A 50 % decrease in venous iPTH levels at 10 min post adenoma excision is expected if all the hypersecreting parat hyroid tissue has been removed (Mike GL et al. Surgery 1993:114; [id number]) Specimen Anatomical Collection Method Collection Time Receive d Time (Source) Location / / Volume Laterality Blood specimen 01/19/2017 9:06 AM 017 9:13 (specimen) EDT AM EDT Resulting Agency Comment Spec In Lab Carrie Butcher MD CHEMISTRY ORDERABLES Performing Organization Address City/[facility] [place]/[facility] [place] [address] Intraoperative PTH (01/19/2017 8:58 AM EDT) athologist Signature Intraoper PTH 48 9 - 77 [facility] YAZ pg/mL [facility] Comment: 10 min post excision called to Laurie BROWER, 01/19/17 09:28 An updated ioPTH assay reagent was imple mented 07/21/16. Please note the modified reference interval. A 50 % decrease in venous iPTH levels at 10 min post adenoma excision is expected if all the hypersecreting parat hyroid tissue has been removed (Mike GL et al. Surgery 1993:114; [id number]) Specimen Anatomical Collection Method Collection Time Receive d Time (Source) Location / / Volume Laterality Blood specimen 01/19/2017 8:58 AM 017 9:03 (specimen) EDT AM EDT Resulting Agency Comment Spec In Lab Carrie Butcher MD CHEMISTRY ORDERABLES Performing Organization Address City/[facility] [place]/[facility] [place] [address] Surgical Pathology Report (01/19/2017 8:50 AM EDT) Component Value Ref Test Analysis Performed At Patholo gist Range Method Time Signature Surgical [id number] ? Location: [facility]; [facility]; A [facility] Report The signing pathologist has (i) examined the relevant preparation(s) for the [facility] specimen(s) and (ii) rendered or confirmed the diagnosis(es) . HOSPITAL LABORATORY . ?Surgic al Pathology DIAGNOSIS A - Left lower parathyroid Parathyroid adenoma, ??with adjacent thymic tissue. Electronically signed by: ??Laurie Eddy DO Verified: ??01/21/2017 ?Pathologist CLINICAL INFORMATION Specimen Submitted: A - Left lower parathyroid Clinical History: Primary HPT Clinical Diagnosis: Primary HPT SPECIMEN PROCESSING A - Labeled/Fixative: Left lower parathyroid, fresh. Quantity/Size: Single, 1.4 x 1.4 x 0.5 cm, 0.93 grams. Tissue Description: Irregula r, ovoid rasmussen-yellow soft tissue with adjacent adipose. On section, surfaces are smooth glistening, rasmussen-yellow. Sections/Processing: Totally submitted. (T2) ??pps Specimen (Source) Anatomical Collection Method Collection Time Re ceived Time Location / / Volume Laterality 01/19/2017 8:50 AM EDT Carrie Butcher MD PATHOLOGY/CYTOLOGY ORDERABLE S Performing Organization Address City/State/[place] [address] Specimen to Pathology (surgical or derm) (01/19/2017 8:50 AM EDT) Specimen Anatomical Collection Method Collection Time Receive d Time (Source) Location / / Volume Laterality AP Specimen 01/19/2017 8:50 AM 7 8:50 EDT AM EDT Narrative [facility] - 01/19/2017 8:50 AM EDT Specimen requisition ordered. ??Separate Pathology report to follow Carrie Butcher MD PATHOLOGY/CYTOLOGY ORDERABLE S Performing Organization Address City/State/[place] [address] (ABNORMAL) Intraoperative PTH (01/19/2017 8:44 AM EDT) athologist Signature Intraoper PTH 163 ([facility] Comment: pre-excision called to Laurie BROWER, 01/19/17 09:17 An updated ioPTH assay reagent was imple mented 07/21/16. Please note the modified reference interval. A 50 % decrease in venous iPTH levels at 10 min post adenoma excision is expected if all the hypersecreting parat hyroid tissue has been removed (Mike DODD et al. Surgery 1993:114; [id number]) Specimen Anatomical Collection Method Collection Time Receive d Time (Source) Location / / Volume Laterality Blood specimen 01/19/2017 8:44 AM 017 8:48 (specimen) EDT AM EDT Resulting Agency Comment Spec In Lab Carrie Butcher MD CHEMISTRY ORDERABLES Performing Organization Address [facility] [place] [address] (ABNORMAL) Intraoperative PTH (01/19/2017 8:35 AM EDT) athologist Signature Intraoper PTH 215 (H) [facility] pg/mL [facility] Comment: An updated ioPTH assay reagent was imple mented 07/21/16. Please note the modified reference interval. A 50 % decrease in venous iPTH levels at 10 min post adenoma excision is expected if all the hypersecreting parat hyroid tissue has been removed (Mike DODD et al. Surgery 1993:114; [id number]) Baseline called to Laurie BROWER, 01/19/17 09:06 Corrected from 215 pg/mL [HI] on 7 09:12 by Regi Nguyen Specimen Anatomical Collection Method Collection Time Receive d Time (Source) Location / / Volume Laterality Blood specimen 01/19/2017 8:35 AM 017 8:40 (specimen) EDT AM EDT Resulting Agency Comment Spec In Lab Carrie Butcher MD CHEMISTRY ORDERABLES Performing Organization Address City/State/[place] [address] documented in this encounter Visit Diagnoses Not on filedocumented in this encounter Administered Medications Inactive Administered Medications - up to 3 most recent administrations Medication Order MAR Action Action Date Dose Rate Site acetaminophen (TYLENOL) tablet Given 01/19/2017 11:28 AM EDT 650 mg 650 mg 650 mg, Oral, EVERY 4 HOURS PRN, Starting on Tue01/19/17 at 0952, Until Tue01/19/17 at 1439, Pain, Maximum dose of acetaminophen is 4000 mg from all sources in 24 hours., Routine BUpivacaine-EPINEPHrine 0.25 Given 01/19/2017 8:04 AM 10 mLs 19- Surgical Site %-1:200,000 injection EDT ONCE PRN, Starting on Tue01/19/17 at 0804, Until Tue01/19/17 at 1439, Intra-Operative (Intra-Procedure), Routine HYDROmorphone (DILAUDID) syringe 0.2-0.4 mg Given 01/19/2017 10:30 AM EDT 0.2 mg 0.2-0.4 mg, Intravenous, EVERY 5 MIN PRN, Pain, Starting on Tue01/19/17 at 0957, Until Tue01/19/17 at 1233, For moderate pain (4-6) give: 0.2 mg every 5 minute prn For severe pain (7-10) give: 0.4 mg every 5 minutes prn Maximum dose: 4 mg per hour Hold for respiratory rate less than 10 per minute., PACU Recovery Given 01/19/2017 10:25 AM EDT 0.2 mg Given 01/19/2017 10:17 AM EDT 0.4 mg lactated Ringers infusion 1,000 New Bag 01/19/2017 6:30 AM EDT 1,000 mLs 100 mL/hr mL 1,000 mL, at 100 mL/hr, Intravenous, CONTINUOUS, Starting on Tue01/19/17 at 0730, Until Tue01/19/17 at 1233, Day of Surgery (Day of Procedure) oxyCODONE (ROXICODONE) immediate release Given 01/19/2017 11:28 AM EDT 5 mg tablet 5 mg 5 mg, Oral, EVERY 4 HOURS PRN, Starting on Tue01/19/17 at 0952, Until Tue01/19/17 at 1439, Pain, Routine documented in this encounter Active and Recently Administered Medications Times are shown in EDT. Continuous Medication Order 01/17/2017 01/18/2017 01/19/2017 lactated Ringers infusion 1,000 mL (CANCELED) 0630 (New Bag - Provider: Graciela Irizarry RN)0933 (Anesthesia Volume Adjustment - Provider: Ameya Bowers CRNA) 1,000 mL, at 100 mL/hr, Intravenous, CON TINUOUS, Starting Tue01/19/17 at 0730, Until Tue01/19/17 at 1233, Day of Surgery (Day of Procedure) PRN Medication Order 01/17/2017 01/18/2017 01/19/2017 acetaminophen (TYLENOL) tablet 650 mg 1128 (Given - Provider: Mica Abarca RN) 650 mg, Oral, EVERY 4 HOURS PRN, Startin g Tue01/19/17 at 0952, Until Tue01/19/17 at 1439, Pain, Maximum dose of acetaminophen is 4000 mg from all sources in 24 hours., Routine BUpivacaine-EPINEPHrine 0.25 %-1:200,000 injection (CANCELED) 0804 (Given - Provider: Carrie Butcher MD) ONCE PRN, Starting Tue01/19/17 at 0804, Until Tue01/19/17 at 1439, Intra- Operative (Intra-Procedure), Routine HYDROmorphone (DILAUDID) syringe 0.2-0.4 mg (CANCELED) 1017 (Given - Provider: Mica Abarca RN)1025 (Given - Provider: Mica Abarca RN)1030 (Given - Provider: Mica Abarca RN) 0.2-0.4 mg, Intravenous, EVERY 5 MIN PRN , Starting Tue01/19/17 at 0957, Until Tue01/19/17 at 1233, Pain, For moderate pain (4-6) give: 0.2 mg every 5 minute prn For severe pain (7-10) give: 0.4 mg every 5 minutes prn Maximum dose: 4 mg per ho ur Hold for respiratory rate less than 10 per minute., PACU Recovery, Routine oxyCODONE (ROXICODONE) immediate release tablet 5 mg 1128 (Given - Provider: Mica Abarca, KEREN) 5 mg, Oral, EVERY 4 HOURS PRN, Starting Tue01/19/17 at 0952, Until Tue01/19/17 at 1439, Pain, Routine documented in this encounter Care Teams Bundler Relationship Specialty Start Date End Date Zoila Posadas APRN PCP - General Family Medicine 10/27/16 documented as of this encounter
--- OUTSIDE RECORDS SUMMARY | 2021-11-18 01:16 | XMS_ITS | Encounter Summary ---
:1950 [place] [address] Care Team Providers Name Role Phone Rufina Rosenbaum Primary Care Provider Encounter Details Date Type Department Care Team Description 08/19/2014 Hospital Encounter [place] [address] Social History Tobacco Use Types Packs/Day Years Used Date Never Assessed Sex Assigned at Date Recorded Not on file documented as of this encounter Medications at Time of Discharge Medication Sig Dispensed Refills Start Date End Date atenolol (TENORMIN) 25 mg 25mg, PO, Once 0 200509/24/2014 tablet daily hydrochlorothiazide 25mg, PO, Once 0 05/24/2005 0 09/24/2014 (HYDRODIURIL) 25 mg tablet daily atorvastatin (LIPITOR) 10 mg 10MG, PO, Once 0 09/24/2014 tablet daily documented as of this encounter Plan of Treatment Not on filedocumented as of this encounter Procedures Procedure Name Priority Date/Time Associated Comments Diagnosis NM PARATHYROID Routine 08/19/2014 1:00 PM Results for this IMAGING DELAY-NMPAR1 EDT procedu re are in the results section. documented in this encounter Results NM parathyroid imaging delay-NMPAR1 (08/19/2014 1:00 PM EDT) Anatomical Region Laterality Modality Other Specimen (Source) Anatomical Collection Method Collection Time Re ceived Time Location / / Volume Laterality 08/19/2014 1:00 PM EDT Narrative 08/19/2014 1:33 PM EDT This is a Non-reportable exam Procedure Note JOE, UNSIGNED REPORT - 08/19/2014Formatt ing of this note might be different from the original. This is a Non-reportable exam Rufina LAMBERT IMCecilia REPORTABLE ONLY documented in this encounter Visit Diagnoses Not on filedocumented in this encounter Care Teams Product Management Intern Relationship Specialty Start Date End Date Rufina Rosenbaum PA PCP - General 08/19/14 10/26/16 documented as of this encounter
--- OUTSIDE RECORDS SUMMARY | 2021-11-18 01:16 | XMS_ITS | Encounter Summary ---
:1950 Author Organization [facility] [place] [address] Care Team Providers Name Role Phone Rufina Rosenbaum Primary Care Provider Encounter Details Date Type Department Care Team Description 08/19/2014 Hospital Encounter Nuclear Medicine at [facility], Rufina Driver PA [address] [place] [address] [place] [address] Social History Tobacco Use Types Packs/Day [...] Associated Comments Diagnosis NM PARATHYROID Routine 08/19/2014 1:32 PM Results for this W/SPECT CT AND EDT procedure are in THYROID IMAGING the results section. documented in this encounter Results NM Parathyroid w/Spect-CT & Thyroid Imaging (08/19/2014 1:32 PM EDT) Anatomical Region Laterality Modality Other Specimen (Source) Anatomical Collection Method Collection Time Re ceived Time Location / / Volume Laterality 08/19/2014 1:32 PM EDT Impressions 08/19/2014 4:27 PM EDT IMPRESSION: Small parathyroid adenoma inferior to th e left lobe of the thyroid. Narrative 08/19/2014 4:27 PM EDT EXAMINATION: PARATHYROID W/SPECT-CT and THYROID IMAGING CLINICAL HISTORY: Hypercalcemia Elevated PTH ?? TECHNIQUE: Technetium-99m sestamibi was administere d intravenously at a dose of 19.4 mCi. 15 minutes later, anterior image of the neck and chest was obtained. Two hours later, the anterior image of t he neck and chest was repeated. Tomographic imaging of the neck and ches t was then performed with the images reconstruction in the axial, coronal and sagittal planes. A low dose CT scan was acquired for attenuation correction and it anatomic localization. Technetium-99m pertechnetate was then ad ministered intravenously at a dose of 17.9 mCi. 20 minutes later, the anterior image of the neck and chest was repeated. COMPARISON: None FINDINGS: ?The early and delayed sestamibi im ages show a small focus of activity just inferior to the left lobe of the thyroid . No corresponding abnormality is seen on the corresponding pertechnetate thyro id scan. Delayed sestamibi planar images show a faint small residual focus of act ivity inferior to the left lower pole thyroid. SPECT-CT images confirm a small focus of sestamibi activity just inferior to the left lobe of the thyroid. Procedure Note Teddy Park MD - 08/19/2014Formatti ng of this note might be different from the original. EXAMINATION: PARATHYROID W/SPECT-CT and THYROID IMAGING CLINICAL HISTORY: Hypercalcemia Elevated PTH TECHNIQUE: Technetium-99m sestamibi was administere d intravenously at a dose of 19.4 mCi. 15 minutes later, anterior image of the neck and chest was obtained. Two hours later, the anterior image of t he neck and chest was repeated. Tomographic imaging of the neck and ches t was then performed with the images reconstruction in the axial, coronal and sagittal planes. A low dose CT scan was acquired for attenuation correction and it anatomic localization. Technetium-99m pertechnetate was then ad ministered intravenously at a dose of 17.9 mCi. 20 minutes later, the anterior image of the neck and chest was repeated. COMPARISON: None FINDINGS: The early and delayed sestamibi images show a small focus of activity just inferior to the left lobe of the thyroid . No corresponding abnormality is seen on the corresponding pertechnetate thyro id scan. Delayed sestamibi planar images show a faint small residual focus of act ivity inferior to the left lower pole thyroid. SPECT-CT images confirm a small focus of sestamibi activity just inferior to the left lobe of the thyroid. IMPRESSION IMPRESSION: Small parathyroid adenoma inferior to th e left lobe of the thyroid. Rufina TONG NM ORDERABLES documented in this encounter Visit Diagnoses Not on filedocumented in this encounter Care Teams Spinner Frame Relationship Specialty Start Date End Date Rufina Rosenbaum PA PCP - General 08/19/14 10/26/16 documented as of this encounter
--- OUTSIDE RECORDS SUMMARY | 2021-11-18 01:16 | XMS_ITS | Encounter Summary ---
:1950 Author Organization [facility] [place] [address] Care Team Providers Name Role Phone Rufina Rosenbaum Primary Care Provider Reason for Referral Consultation (Routine) - Closed Specialty Diagnoses / Procedures Referred By Contact Refer red To Contact Neurology Diagnoses Acute confusion Syncope, unspecified Melissa Gallo MD [facility] D R [facility] [place] [address] [place] [address] Referral ID Status Reason Start Date Expiration Date Visits V isits Requested Authorized [id number] Closed Consult, 09/24/2014 09/24/2015 3 3 Test & Treat Encounter Details Date Type Department Care Team Description 09/24/2014 Office Visit Endocrinology at [facility] Doug Bass Transient confusion; [facility] MD VALARIE Syncope, unspecified; [facility] Hyperparathyroidism; [place] [address] CENTER Hypercalcemia; [phone] ENDOCRINOLOGY Parathyroid ad enoma; DEPT. Osteopenia [place], [place] [address] Social History Tobacco Use Types Packs/Day Years Used Date Never Smoker Smokeless Tobacco: Never Used Sex Assigned at Date Recorded Not on file documented as of this encounter Last Filed Vital Signs Vital Sign Reading Time Taken Comments Blood Pressure 149/67 09/24/2014 9:24 AM EDT Pulse 79 09/24/2014 9:24 AM EDT Temperature - - Respiratory Rate - - Oxygen Saturation - - Inhaled Oxygen Concentration - - Weight 75.3 kg (166 lb) 09/24/2014 9:24 AM EDT Height 162.6 cm (5' 4) 09/24/2014 9:24 AM EDT Body Mass Index 28.49 09/24/2014 9:24 AM EDT documented in this encounter Progress Notes Doug Pitt III, MD - 09/26/2014 8:18 AM EDT I interviewed and examined the patient in the presence of Dr. Gallo, and I agree with his note.A major question here is whether the patient has asymptomatic primary hyperparathyroidism, becauseabsentr symptoms, she does not meet published guideline criteria for surgery. Her symptoms are quite atypical for hyprcalcemia, and suggest the possibility of a cataplexy-like illness (with drop attacks). Christiano Pitt MD Melissa Gallo MD - 09/24/2014 9:39 AM EDT New Patient Endocrinology Evaluation Reason for Evaluation: Primary Hyperparathyroidism HPI Eloisa Hinson is a 64 y/o female Jehova's Witness who is seen in consultation for hyperparathyroidism. Her past medical history is consistent for hypertension. In her usual state of health, she is fairly active. However, over the past 3 years, she has developed increased memory problems and concentration difficulties. Workup for these issues revealed high calcium in the range 10.6 - 11.1. Her calcium was most recently 11.1 with PTH of 195. She has a history of low Vitamin D and presently is on 6000 IU daily, but her PTH has not been rechecked since starting treatment. Further investigation revealed a left inferior parathyroid adenoma on sestimibi scan and therefore she is seen today for management r ecommendations. Eloisa Hinson has no history of nephrolithiasis. No history of fractures. She has constipation at times but it does not cause discomfort. No paresthesias. No lumps in her neck to her knowledge. No difficulty swallowing. What is of most concern to her, however, are her memory problems that started about3 years ago after a hospitalization for hypertensive urgency associated with transient global amnesia. She reports episodes of memory loss that occur in the morning when she wakes up and are associatedwith lack of sleep, neck pain, and acute confusion without loss of consciousness. She denies associated muscle weakness/paralysis/slurred speech during these episodes. However, she is often confused and unable to process her thought process verbally during the episode. These episodes last about 1-2 minutes and two of the episodes in the last 3 years have been associated with syncope. She fell to the left side, but does not recall having loss of muscular control. She reports 1-2 episodes of confusion weekly, but her concentration difficulties occur daily and have worsened over the past 3 years. She has not seen a neurologist for these symptoms. Lastly, Eloisa Hinson stated today that she has no know family history of multiple endocrine neoplasia. Her hypertension has responded to management with Lisinopril. She denies associated palpitations/flushing/paleness. She denies headaches/visual changes. No family history of medullary thyroid cancer. Past Medical History 1. Hypertension 2. Hyperlipidemia 3. Transient Global Amnesia - 3 years ago Past Surgical History 1. Hernia repair Current Medications lisinopril (PRINIVIL;ZESTRIL) 10 mg Tablet; Cholecalciferol, Vitamin D3, 5,000 unit Tablet; cyanocobalamin 1,000 mcg Tablet; aspirin 81 mg Tablet, Delayed Release (E.C.) Social History Lives in [place]. She is not working. Does not smoke cigarettes. Has a glass of wine once in a while. She is with 4 children. Family History Parents are . Mother of colon cancer. Her father of liver disease (alcohol relatedcirrhosis). Her 4 children are healthy. Review of Systems Review of Systems - History obtained from the patient General ROS: positive for - fatigue Psychological ROS: positive for - concentration difficulties and memory difficulties Ophthalmic ROS: negative for - blurry vision or loss of vision ENT ROS: negative for - headaches, vertigo, visual changes or vocal changes Hematological and Lymphatic ROS: negative for - bleeding problems, jaundice, night sweats, swollen lymph nodes or weight loss Endocrine ROS: positive for - malaise/lethargy Respiratory ROS: no cough, shortness of breath, or wheezing Cardiovascular ROS: no chest pain or dyspnea on exertion. Positive for syncope x 2 negative for - edema, irregular heartbeat, orthopnea or paroxysmal nocturnal dyspnea Gastrointestinal ROS: positive for - constipation Genito-Urinary ROS: no dysuria, trouble voiding, or hematuria negative for - hematuria, incontinence, nocturia or urinary frequency/urgency Musculoskeletal ROS: positive for - joint pain and muscle pain in her neck. Neurological ROS: negative for - behavioral changes, bowel and bladder control changes, dizziness, gait disturbance, impaired coordination/balance, numbness/tingling, seizures or visual changes. Positive for concentration difficulties, memory changes. Dermatological ROS: negative for - dry skin, hair changes or pruritus Physical Examination BP 149/67 Pulse 79 Ht 162.6 cm (5' 4) Wt 75.297 kg (166 lb) BMI 28.48 kg/m2 General Appearance - Appears stated age. No acute distress. Pscyh - She was alert, oriented x 3. She had a difficult time expressing her thoughts verbally at times. She was tangential at times. No auditory/visual hallucinations. No circumstantiality noted. Head - Normal cephalic. Eyes - EOMI. Normal fundoscopic exam. Neck - No thyromegaly. No palpable masses. No lymphadenopathy. No carotid bruits. CVS - RRR, S1S2 normal. No murmurs. No peripheral edema. No JVD. Abd - Soft, non-tender. No palpable masses. Normal active bowel sounds. Neuro - CN II-XII are in tact. No tremors noted. Labs Calcium - 11.1 PTH - 195 Vitamin D - 19.5 - 22.5 Imaging 1. Nuclear parathyroid scan - Small parathyroid adenoma inferior to the left lobe of the thyroid. Assessment Eloisa Hinson is a 64 y/o female with mild primary hyperparathyroidism with evidence of osteopenia onbone density and lowest T score of -2.8 at her left wrist. Recent parathyroid nuclear scan revealed left inferior parathyroid adenoma. Apart from memory/concentration difficulties, she does not have the classic symptoms of hypercalcemia from primary hyperparathyroidism - no paresthesias, no worsening constipation, no compressive symptoms in her neck. Furthermore, her memory difficulties are concerning though not typical with calcium levels less than 12.0 and the episodes of confusion in the morning are also not typical for hypercalcemia/hyperparathyroidism. She also does not meet criteria at this time for surgical intervention of asymptomatic primary hyperparathyroidism (calcium >11.5, new osteoporosis with T score less than -2.5 at the lumbar spine, age less than 50). We therefore have to determine if her memory/confusion is truly related to mild hypercalcemia or if there is another process contributing to her symptoms. If there is no other process that would explain her memory/concentration issues, then Eloisa would be a candidate for evaluation for parathyroidectomy. We therefore will make a referral to neurology. Also, in light of primary hyperparathyroidism, it would be important to assess for Multiple Endocrine Neoplasia. We will therefore check a calcitonin level today. If calcitonin is elevated, it would be concerning for medullary carcinoma of the thyroid and underlying MEN syndrome and further workup will be considered. Lastly, her history of hypertensive urgency is somewhat concerning, though it is not typical of a pheochromocytoma to respond to Lisinopril alone; therefore, we will refrain from workup of pheochromocytoma at this time, especially in light of normal blood pressure and heart rate today. In summary, the following are our recommendations: Recommendations 1. Check Calcitonin 2. Refer to neurology for episodes of confusion - Recommend not having surgery on parathyroid until confusion etiology is worked up better. If neurology suggests that her symptoms are in fact due to her mild hypercalcemia, then we will refer Eloisa to parathyroid surgery for evaluation. Eloisa made it clear that if she were to undergo surgery, she is a Jehova's Witness and would not want blood transfusions. Follow Up - Pending neurology evaluation. Plan of care has been discussed with attending physician, Dr. Yoandy SHEPPARD MD, Department of Endocrinology Melissa Gallo MD Endocrine Fellow documented in this encounter Plan of Treatment Scheduled Referrals Name Type Priority Associated Diagnoses Order S chedule Referral to Outpatient Referral Routine Transient co nfusion Ordered: Neurology Syncope, unspecified 015 documented as of this encounter Procedures Procedure Name Priority Date/Time Associated Diagnosis Comme nts CALCITONIN Routine 09/24/2014 10:59 AM Hyperparathyroidism R esults for this EDT procedure are i n the results section . documented in this encounter Results Calcitonin (09/24/2014 10:59 AM EDT) athologist Signature Calcitonin Lvl <2 <=5 pg/mL [facility] Comment: This test was performed using the Siemen s (DPC) Chemiluminescent method. Values obtained with different assay methods cannot be used i nterchangeably. Calcitonin levels, regardless of value, should not be interpreted as absolute evidence of the presence or absence of the disease. Test Performed by [employer], [facility], [address] [place], [place] [address] Bo Roth M.D., Ph.D., Director [facility] [place] , [facility] [id number] Specimen Anatomical Collection Method Collection Time Receive d Time (Source) Location / / Volume Laterality Blood specimen 09/24/2014 10:59 5 3:13 (specimen) AM EDT PM EDT Resulting Agency Comment Spec In Lab Doug Pitt III, MD CHEMISTRY ORDERABLES Performing Organization Address City/State/[place] [address] [facility] documented in this encounter Visit Diagnoses Diagnosis Transient confusion Unspecified psychosis Syncope, unspecified Hyperparathyroidism Hyperparathyroidism, unspecified Hypercalcemia Parathyroid adenoma Benign neoplasm of parathyroid gland Osteopenia Disorder of bone and cartilage, unspecif ied documented in this encounter Care Teams Liner Man Relationship Specialty Start Date End Date Rufina Rosenbaum PA PCP - General 08/19/14 10/26/16 documented as of this encounter
--- OUTSIDE RECORDS SUMMARY | 2021-11-18 01:16 | XMS_ITS | Encounter Summary ---
:1950 [place] [address] Care Team Providers Name Role Phone Rufina Rosenbaum Primary Care Provider Encounter Details Date Type Department Care Team Description 10/15/2014 Telephone Endocrinology at [facility] C Melissa Gallo MD [facility] [address] ENDOCRINOLOGY DEPT [phone] [place] [id number] (Wo rk) Social History Tobacco Use Types Packs/Day Years Used Date Never Smoker Smokeless Tobacco: Never Used Sex Assigned at Date Recorded Not on file documented as of this encounter Miscellaneous Notes Telephone Encounter - Melissa Gallo MD - 10/15/2014 2:46 PM EDT Called Eloisa to follow up on her and if she has received a call from Neurology. She answered the phone a couple of times and then hung up without answering back. Called a third time and got her voicemail. A message was left for her to call back. Dr. Sabino MD Endocrine Fellow documented in this encounter Plan of Treatment Not on filedocumented as of this encounter Visit Diagnoses Not on filedocumented in this encounter Care Teams Pole Peeling Machine Operator Relationship Specialty Start Date End Date Rufina Rosenbaum PA PCP - General 08/19/14 10/26/16 documented as of this encounter
--- OUTSIDE RECORDS SUMMARY | 2021-11-18 01:16 | XMS_ITS | Encounter Summary ---
:1950 [place] [address] Care Team Providers Name Role Phone Zoila Posadas SARY Primary Care Provider Encounter Details Date Type Department Care Team Description 01/19/2017 Anesthesia Event Main Operating Room Pravin Cordero MD [facility] DR [place] [address] [facility]Ameya, AGRICULTURAL CROP FARM MANAGER [address] [place] [address] [place] [address] Anesthesia Record Procedure Summary Procedure Name Responsible Anesthesia Start Anesthesia Stop Anesthesiologist Time Time PARATHYROIDECTOMY OR Pravin Sheehan MD 01/19/17 0728 01/19 0956 EXPLORATION OF PARATHYROID(S) (WRVU 15.6) (N/A Neck) Events Date Time Event Comment 01/19/2017 0706 0728 AN Verify 0728 Start 0733 An Start Data 0740 An Induction 0741 An Intubation 0750 Anesthesia Ready 0817 Procedure Start 0817 Skin Incision 0927 Procedure Stop 0927 Quick Note Awaiting lab res ults 0947 Extubation/LMA Out 0949 an stop data 0955 Recovery or ICU Handoff Patient care was transferred to the destination unit staff after review of the patient's medica l history, current anesthetic/surgi earnestine status and plan, according to the Provider Handoff Checklist. 0956 Stop Name Total Midazolam 2 mg fentaNYL 100 mcg IV Lidocaine 50 mg Propofol 130 mg Rocuronium 10 mg ePHEDrine 35 mg Ondansetron 8 mg Dexamethasone 8 mg REMIfentanil INF 1.26 mg Propofol INF 515.46 mg Succinylcholine 100 mg Labetalol 15 mg lactated Ringers infusion 1,000 mL 900 mL Agents Name O2 Air N2O Sevoflurane (et) Blood No blood administrations on file. Lines, Drains, and Airways Type Details Placement Removal Incision 01/19/17; 0817; neck 01/19/17 0817 by Sarah Rogers, KEREN PIV 01/19/17; 0631; cephalic 01/19/17 0631 by Alessandro, 01/19/17 1233 by vein (lateral side of arm), KEREN Davis, Dev Hernandez RN right; [id number] catheter system; 20 gauge; vitor garay rn; distraction, intradermal injection, tolerated well, appears comfortable; 1; metacarpal vein (top of hand), right; 01/19/17; 1233 ETT Mask Ventilation: Easy (1); 01/19/17 0741 by Jam koroma, 01/19/17 0947 by ETT Type: Cuffed, Oral, NIM; ADI [place] Michael R, ETT Size: 7 mm; AGRICULTURAL CROP FARM MANAGER Indirect:Video (Video for NIM placement); Notes: Asleep, Pre-O2, Stylette; Attempts: 1; Laryngoscopy Grade: 1 (Video); ETT Placement Verified By: Auscultation, Capnometry, Visual; Secured at Teeth: 21 cm; Inserted by: Robin Bowers CRNA documented in this encounter Social History Tobacco Use Types Packs/Day Years [...] on file documented as of this encounter OR Notes Anesthesia Postprocedure Evaluation - Pravin Sheehan MD - 01/19/2017 4:55 PM EDT [facility] [place] [facility] [place] Department of Anesthesiology Post-procedure Note Patient: Eloisa Hinson Procedure Summary Date Anesthesia Start Anesthesia Stop Room / Location 01/19/17 0728 0956 [facility] OR 24 / [facility] MAIN OR Procedure Diagnosis Surgeon Responsible Provider PARATHYROIDECTOMY OR EXPLORATION OF PARATHYROID(S) (WRVU 15.6) (N/A Neck); FACIAL NERVE MONITORING,SETUP LARYNGEAL (WRVU 1.57) (N/A Neck) (PRIMARY HPT) Dea Waters MD Burchman, Corey A, MD All Anesthesia Providers: Anesthesiologist: Pravin Sheehan MD A[employer]IC[employer] FARM MANAGER: Ameya Bowers CRNA Most Recent Vitals: 01/19/17 1115 BP: (!) 164/102 Pulse: Resp: Temp: SpO2: 91% Pain Patient Location: PACU/SD Level of Consciousness: Awake and Alert Pain Management: Satisfactory Analgesia PONV: None Cardiovascular Status: At Baseline and Hemodynamically Stable Respiratory Status: At Baseline and Room Air Postoperative Fluid Status: Intravascular EUvolemia Possible Anesthetic Complications: NONE apparent at time of evaluation Final Primary Anesthesia Type: General (The anesthetic type performed was the same as planned.) Comments: PRAVIN SHEEHAN MD Anesthesia Preprocedure Evaluation - Pravin Sheehan MD - 01/19/2017 7:08 AM EDT Pre-Anesthesia Evaluation for: Eloisa Hinson a 66 y.o. female. Procedure(s): PARATHYROIDECTOMY OR EXPLORATION OF PARATHYROID(S) (WRVU 15.6) FACIAL NERVE MONITORING, SETUP LARYNGEAL (WRVU 1.57) Patient Active Problem List Diagnosis ??? Primary hyperparathyroidism ??? Parathyroid adenoma ??? Hypercalcemia ??? Osteopenia ??? Transient confusion ??? Disturbed concentration Past Medical History: Diagnosis Date ??? 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 when her dog was hit by a car) ??? Hyperparathyroidism ??? Hypertension ??? Osteoporosis Past Surgical History: Procedure Laterality Date ??? INGUINAL HERNIA REPAIR Left Social History Substance Use Topics ??? Smoking status: Never Smoker ??? Smokeless tobacco: Never Used ??? Alcohol use 0.6 oz/week 1 Glasses of wine per week Comment: occasional History Drug Use No No Known Allergies Medications: MAR and/or home medications have been reviewed. Physical Exam: Most Recent Vitals: 01/19/17 0619 BP: 184/81 Pulse: 70 Resp: 16 Temp: 36.6 ??C (97.9 ??F) SpO2: 96% Body mass index is 29.27 kg/(m^2). Weight - Scale: 72.6 kg (160 lb 0.9 oz) Airway Assessment: Mallampati: II TM distance: >3 FB Neck ROM: full Cardiovascular Assessment: Rhythm: regular Pulmonary Assessment: breath sounds clear to auscultation Dental Assessment: - normal exam Misc Assessment: IV access: Peripheral line Anesthesia Plan: ASA 3 general, with a(n) intravenous induction Eloisa Hinson is a 66 y.o. year-old female with primary hyperparathyroidism that was found on hypercalcemia workup, scheduled for a parathyroidectomy with laryngeal nerve monitoring. MEDICAL HISTORY is also significant for HTN, osteopororis, h/o cataplexy. Never smoker. ANESTHESIA HISTORY: No prev airway records here NPO STATUS: Appropriate ANESTHETIC PLAN GA with NIMS ETT Adequate intravenous access Standard ASA monitors In the event of requiring volume resuscitation, patient is a Alevism. She will accept crystalloids, colloids including albumin, but not whole blood, pRBCs, FFP, platelets or cryoprecipitate. We discussed the risks and benefits of blood transfusions and she understands the risks of declining blood products in the event of an emergency and agrees to proceed. In the event that she goes into cardiac arrest she would also like to only have resuscitation attempted once. If she goes into cardiac arrest a second time she would prefer not to have any further resuscitation efforts. Region - Other Informed Consent: Anesthetic plan and risks discussed with patient. Use of blood products discussed with patient who. Special considerations: Alevism. Plan discussed with AGRICULTURAL CROP FARM MANAGER. PAT Staff Note documented in this encounter Plan of Treatment Not on filedocumented as of this encounter Visit Diagnoses Not on filedocumented in this encounter Administered Medications Inactive Administered Medications - up to 3 most recent administrations Medication Order MAR Action Action Date Dose Rate Site dexamethasone (DECADRON) injection Given 01/19/2017 8:10 AM EDT 8 mg PRN, Starting on Tue01/19/17 at 0810, Until Tue01/19/17 at 1132, Anesthesia Intra-op, Routine ePHEDrine 5 mg/mL multi-dose injection Given 01/19/2017 9:02 AM EDT 10 mg PRN, Starting on Tue01/19/17 at 0759, Until Tue01/19/17 at 1132, Anesthesia Intra-op, Routine Given 01/19/2017 8:17 AM EDT 5 mg Given 01/19/2017 8:14 AM EDT 5 mg fentaNYL 50 mcg/mL multi-dose injection Given 01/19/2017 8:15 AM EDT 50 mcg PRN, Starting on Tue01/19/17 at 0740, Until Tue01/19/17 at 1132, Pain, Anesthesia Intra-op, Routine Given 01/19/2017 7:40 AM EDT 50 mcg labetalol (NORMODYNE,TRANDATE) multi-dose Given 01/19/2017 9:39 AM EDT 5 mg injection PRN, Starting on Tue01/19/17 at 0933, Until Tue01/19/17 at 1132, High Blood Pressure, Anesthesia Intra-op, Routine Given 01/19/2017 9:33 AM EDT 10 mg lidocaine (PF) (XYLOCAINE) 100 mg/5 mL (2 %) Given 7 7:40 AM EDT 50 mg injection PRN, Starting on Tue01/19/17 at 0740, Until Tue01/19/17 at 1132, Anesthesia Intra-op, Routine midazolam (PF) (VERSED) 1 mg/mL multi-dose Given 01/19/2017 7:29 AM EDT 2 mg injection PRN, Starting on Tue01/19/17 at 0729, Until Tue01/19/17 at 1132, Sleep, Anesthesia Intra-op, Routine ondansetron (ZOFRAN) injection Given 01/19/2017 8:57 AM EDT 8 mg PRN, Starting on Tue01/19/17 at 0857, Until Tue01/19/17 at 1132, Nausea, Anesthesia Intra-op, Routine propofol (DIPRIVAN) 10 mg/mL bolus injection Given 7:40 AM EDT 130 mg (Anesthesia) PRN, Starting on Tue01/19/17 at 0740, Until Tue01/19/17 at 1132, Anesthesia Intra-op propofol (DIPRIVAN) Rate/Dose 01/19/2017 9:11 100 mcg/kg/min 43.6 mL /hr infusion Change AM EDT CONTINUOUS PRN, Starting on Tue01/19/17 at 0745, Until Tue01/19/17 at 1132, Anesthesia Intra-op, Routine New Bag 01/19/2017 7:45 AM EDT 50 mcg/kg/min 21.8 mL/hr remifentanil (ULTIVA) 0.02 mg/mL New Bag 01/19/2017 7:45 0.2 m cg/kg/min 43.6 mL/hr IV infusion (ANESTHESIA) AM EDT CONTINUOUS PRN, Starting on Tue01/19/17 at 0745, Until Tue01/19/17 at 1132, Anesthesia Intra-op rocuronium (ZEMURON) multi-dose injectio n Given 01/19/2017 7:40 AM EDT 10 mg PRN, Starting on Tue01/19/17 at 0740, Until Tue01/19/17 at 1132, Anesthesia Intra-op, Routine succinylcholine (ANECTINE) injection Given 01/19/2017 7:40 AM EDT 100 mg PRN, Starting on Tue01/19/17 at 0740, Until Tue01/19/17 at 1132, Anesthesia Intra-op, Routine documented in this encounter Care Teams Sccm Administrator Relationship Specialty Start Date End Date Zoila Posadas APRN PCP - General Family Medicine 10/27/16 documented as of this encounter
--- OUTSIDE RECORDS SUMMARY | 2021-11-18 01:16 | XMS_ITS | Encounter Summary ---
:1950 [place] [address] Care Team Providers Name Role Phone Cuauhtemoc Zoila Travis OKEEFE Primary Care Provider Encounter Details Date Type Department Care Team Description 01/11/2017 Hospital Encounter Same Day Program at [facility] Waters rathyroid adenoma Ade LynnBosquesisi Hinton MD [facility] DR Alonzo GENERAL SURGERY [place] [phone] Social History Tobacco Use Types Packs/Day Years [...] EKG 12 Lead (01/11/2017 1:17 PM EDT) [facility] gist Method Time Signature Ventricular rate 77 BPM MUSE SYSTEM Atrial Rate 77 BPM MUSE SYSTEM P-R Interval 142 ms MUSE SYSTEM QRS Duration 88 ms MUSE SYSTEM Q-T Interval 392 ms MUSE SYSTEM QTC Calculated 443 ms MUSE SYSTEM (Bezet) Calculated R [place] 16 degrees MUSE SYSTEM Calculated T [place] 31 degrees MUSE SYSTEM INTERPRETATION Normal sinus rhythm MUSE SYSTEM Normal ECG No previous ECGs available Confirmed by MD CAGE ALAN ([id number]) on 01/12/2017 7:51:30 PM Specimen Anatomical Collection Method Collection Time Receive d Time (Source) Location / / Volume Laterality 01/11/2017 1:17 PM 7 7:51 EDT PM EDT Christal Merchant MD ECG ORDERABLES Performing Organization Address City/State/ZIP Code Phon e Number MUSE SYSTEM documented in this encounter Visit Diagnoses Diagnosis Parathyroid adenoma Benign neoplasm of parathyroid gland documented in this encounter Administered Medications Inactive Administered [...] Routine documented in this encounter Care Teams Artificial Breast Fabricator Relationship Specialty Start Date End Date Zoila Posadas APRN PCP - General Family Medicine 10/27/16 documented as of this encounter
--- OUTSIDE RECORDS SUMMARY | 2021-11-18 01:16 | XMS_ITS | Encounter Summary ---
:1950 [place] [address] Care Team Providers Name Role Phone Zoila Posadas SARY Primary Care Provider Encounter Details Date Type Department Care Team Description 01/11/2017 Anesthesia Event Main Operating Room Christopher Benitez MD [facility] [place]key [place] [address] [place] [address] [phone] (Wo rk) Anesthesia Record Procedure Summary Procedure Name Responsible Anesthesia Start Anesthesia Stop Anesthesiologist Time Time PARATHYROIDECTOMY OR EXPLORATION OF PARATHYROID(S) (WRVU 15.6) (N/A Neck) Events Date Time Event Comment 01/11/2017 1337 01/13/2017 1058 Procedure Not Performed No medications on file. Agents No agents on file. Blood No blood administrations on file. Lines, Drains, and Airways Type Details Placement Removal Incision 01/19/17; 08; neck 01/19/17 0817 by Sarah Chamberlain RN documented in this encounter Social History Tobacco [...] as of this encounter OR Notes Anesthesia Preprocedure Evaluation - Christal Merchant MD - 01/11/2017 8:47 AM EDT Pre-Anesthesia Evaluation for: Eloisa Hinson [...] Smokeless tobacco: Never Used ??? Alcohol use Not on file History Drug Use Not on file No Known Allergies Medications: MAR and/or home medications have been reviewed. Physical Exam: There were no vitals filed for this visit. There is no height or weight on file to calculate BMI. Airway Assessment: Mallampati: II TM distance: >3 [...] of requiring volume resuscitation, patient is a Presybeterian. She will accept crystalloids, colloids including albumin, [...] products discussed with patient who. Special considerations: Presybeterian. Plan discussed with resident. PAT Staff Note documented in this encounter Plan of Treatment Not on filedocumented as of this encounter Visit Diagnoses Not on filedocumented in this encounter Care Teams Plant Physiology Teacher Relationship Specialty Start Date End Date Zoila Posadas APRN PCP - General Family Medicine 10/27/16 documented as of this encounter
--- OUTSIDE RECORDS SUMMARY | 2021-11-18 01:16 | XMS_ITS | Encounter Summary ---
:1950 Author Organization [facility] [place] [address] Care Team Providers Name Role Phone Aileenmichelle Zoila Robles APRN Primary Care Provider Encounter Details Date Type Department Care Team Description 01/19/2017 Hospital Encounter Same Day Program at [facility] But[facility] MD Jamaal [facility] DR Alonzo [place] [address] [place] [address] [phone] (Wo rk) Social History Tobacco Use Types [...] Take NSAIDS or Tylenol every 6 hours mhyxjo-fzz-wykvd for the first 3-5 days following surgery [...] or grocery store, as it is available vfzg-qwh-rroopit and does not require a prescription. The [...] spasms,please call the General Surgery nurse at [phone], since this may mean that you need [...] will be mailed to you Please call [phone] to confirm the date and time of [...] days after surgery. Phone number for questions: [phone] before 5 PM on weekdays [phone] after 5 PM and on weekends/holidays. Ask for the general surgery resident pulmonary care nurse. Future Appointments Date Time Provider Department Center 02/10/2017 10:30 AM LAB, THREE L Lab 3L [facility] 02/10/2017 11:30 AM Carrie Butcher MD [facility] documented in this encounter Medications at [...] AM EDT General Surgery Interval H&P Eloisa Hinson,[id number],1950 ID: [id number] F with hypercalcemia and [...] Butcher MD - 01/19/2017 9:07 AM EDT [facility] [place] Patient Name: Eloisa Hinson : [id number] MR#: [id number] Case Date: 01/19/2017 Surgeon: Surgeon(s) and Role: [...] anesthesia was completed by anesthesiology with the [employer] recurrent laryngeal nerve monitoring system. A crease [...] Operative Note Patient Name: Eloisa Hinson : [id number] MR#: [id number] Case Date: 01/19/2017 Surgeon: Surgeon(s) and Role: [...] STAT 01/19/2017 9:06 Result s for this [place] [place] AM EDT procedure are i n the results section. INTRAOPERATIVE PTH STAT 01/19/2017 8:58 Result s for this [place] [place] AM EDT procedure are i n the results section. SURGICAL PATHOLOGY REPORT Routine 01/19/2017 8:50 Results for this AM EDT procedure are i n the results section. SPECIMEN TO PATHOLOGY Routine 01/19/2017 8:50 Res ults for this AM EDT procedure are i n the results section. INTRAOPERATIVE PTH STAT 01/19/2017 8:44 Result s for this ([facility] [place] AM EDT procedure are i n the results section. INTRAOPERATIVE PTH STAT 01/19/2017 8:35 Result s for this ([facility] [place] AM EDT procedure are i n the results section. FACIAL NERVE MONITORING, Yes 01/19/2017 7:30 PRIMARY HPT SETUP LARYNGEAL (WRVU AM EDT 1.57) PARATHYROIDECTOMY OR Yes 01/19/2017 7:30 PRIMARY HPT EXPLORATION OF AM EDT PARATHYROID(S) (WRVU 15.6) documented in this encounter Results Intraoperative PTH (01/19/2017 9:06 AM EDT) athologist Signature Intraoper PTH 39 9 - 77 [facility] Comment: 15-minute post-excision called to Laurie BROWER, 01/19/17 09:39 An updated ioPTH assay reagent was imple mented 07/21/16. Please note the modified reference interval. A 50 % decrease in venous iPTH levels at 10 min post adenoma excision is expected if all the hypersecreting parat hyroid tissue has been removed (Mike GL et al. Surgery 1993:114; [id number]) Specimen Anatomical Collection Method Collection Time Receive d Time (Source) Location / / Volume Laterality Blood specimen 01/19/2017 9:06 AM 017 9:13 (specimen) EDT AM EDT Resulting Agency Comment Spec In Lab Carrie Butcher MD CHEMISTRY ORDERABLES Performing Organization Address [facility] [place] [address] Intraoperative PTH (01/19/2017 8:58 AM EDT) athologist [facility] Intraoper PTH 48 9 - 77 [facility] pg[facility]mL [facility] Comment: 10 min post excision called to Laurie BROWER, 01/19/17 09:28 An updated ioPTH assay reagent was imple mented 07/21/16. Please note the modified reference interval. A 50 % decrease in venous iPTH levels at 10 min post adenoma excision is expected if all the hypersecreting parat hyroid tissue has been removed (Mike GL et al. Surgery 1993:114; [id number]) Specimen Anatomical Collection Method Collection Time Receive d Time (Source) Location / / Volume Laterality Blood specimen 01/19/2017 8:58 AM 017 9:03 (specimen) EDT AM EDT Resulting Agency Comment Spec In Lab Carrie Butcher MD CHEMISTRY ORDERABLES Performing Organization Address [facility] [place] [address] Surgical Pathology Report (01/19/2017 8:50 AM EDT) Component Value Ref Test Analysis Performed At [facility] Range Method Time Signature Surgical [id number] ? Location: [facility]; [facility]; A [facility] Report The signing pathologist has (i) examined [...] MD PATHOLOGY/CYTOLOGY ORDERABLE S Performing Organization Address City/[facility]/ZIP [place] [address] Specimen to Pathology (surgical or derm) (01/19/2017 8:50 AM EDT) Specimen Anatomical Collection Method Collection Time Receive d Time (Source) Location / / Volume Laterality AP Specimen 01/19/2017 8:50 AM 7 8:50 EDT AM EDT Narrative [facility] - 01/19/2017 8:50 AM EDT Specimen requisition ordered. ??Separate Pathology report to follow Carrie Butcher MD PATHOLOGY/CYTOLOGY ORDERABLE S Performing Organization Address City/[facility]/ZIP [place] [address] (ABNORMAL) Intraoperative PTH (01/19/2017 8:44 AM EDT) P athologist Signature Intraoper PTH 163 (H) 9 - 77 [facility]mL [facility] Comment: pre-excision called to Laurie BROWER, 01/19/17 09:17 An updated ioPTH assay reagent was imple mented 07/21/16. Please note the modified reference interval. A 50 % decrease in venous iPTH levels at 10 min post adenoma excision is expected if all the hypersecreting parat hyroid tissue has been removed (Mike DODD et al. Surgery 1993:114; 5887-1179) Specimen Anatomical Collection Method Collection Time Receive d Time (Source) Location / / Volume Laterality Blood specimen 01/19/2017 8:44 AM 017 8:48 (specimen) EDT AM EDT Resulting Agency Comment Spec In Lab Carrie Butcher MD CHEMISTRY ORDERABLES Performing Organization Address [facility] e Number [address] (ABNORMAL) Intraoperative PTH (01/19/2017 8:35 AM EDT) P athologist Signature Intraoper PTH 215 (H) 9 - 77 [facility] pg/mL [facility] Comment: An updated ioPTH assay reagent was imple mented 07/21/16. Please note the modified reference interval. A 50 % decrease in venous iPTH levels at 10 min post adenoma excision is expected if all the hypersecreting parat hyroid tissue has been removed (Mike DODD et al. Surgery 1993:114; [id number]) Baseline called to Laurie BROWER, 01/19/17 09:06 Corrected from 215 pg/mL [HI] on 7 09:12 by Regi Nguyen Specimen Anatomical Collection Method Collection Time Receive d Time (Source) Location / / Volume Laterality Blood specimen 01/19/2017 8:35 AM 017 8:40 (specimen) EDT AM EDT Resulting Agency Comment Spec In Lab Carrie Butcher MD CHEMISTRY ORDERABLES Performing Organization Address [facility] Phon e Number [facility] [place] [address] documented in this encounter [...] from all sources in 24 hours., Routine HYDROmorphone (DILAUDID) syringe 0.2-0.4 mg Given [...] 5 mg 1128 (Given - Provider: Mica Abarca RN) 5 mg, Oral, EVERY 4 HOURS PRN, Starting Tue01/19/17 at 0952, Until Tue01/19/17 at 1439, Pain, Routine documented in this encounter Care Teams Winemaker Relationship Specialty Start Date End Date Zoila Posadas APRN PCP - General Family Medicine 10/27/16 documented as of this encounter
--- OUTSIDE RECORDS SUMMARY | 2021-11-18 01:17 | XMS_ITS | Encounter Summary ---
:1950 Author Organization [facility] Address [address] [place] [address] Care Team Providers Name Role Phone Unavailable Primary Care Provider Unavailable Encounter Details Date Type Department Care Team Description 08/31/2005 Results Only [facility] - Aliyah Burton, Chr istopher, conversion DO [address] [facility] [address] [facility] [address] [place] [address] [place] [address] (Wo rk) Social History Tobacco Use Types Packs/Day Years Used Date Never Assessed Sex Assigned at Date Recorded Not on file documented as of this encounter Plan of Treatment Not on filedocumented as of this encounter Procedures Procedure Name Priority Date/Time Associated Diagnosis Comme nts SURGICAL PATHOLOGY Routine 08/31/2005 0:00 EDT Re sults for this procedure are i n the results section. documented in this encounter Results SURGICAL PATHOLOGY (08/31/2005 0:00 EDT) Pathology Report: SURGICAL PATHOLOGY REPORT [facility] Reports generated via electronic interface contain mateo ginal data; LAB however they are lacking the format of the original re port. Caution should be taken when reading/interpreting unfo rmatted reports. Name: ? AC OTERO ? Accession #: ? [id number] ? : ? 1950 (Age: 55) ??F ? Collect Date: ? 08/31/2005 ? Location: ? [facility] ? Receive Date: ? 006 ? Provider: ESTEPHANIA BURTON DO Copy to: JACKY POLANCO MD ? Final Pathologic Diagnosis: ? Rectum, polypectomy: - Cauterized fragments of hyperplastic polyp. ??See co mment. Comment: ? This case has been re viewed at intradepartmental consultation conference. (Jose Lou/[facility] Document reviewed and electronically signed by: JOHN JEAN MD Report ??Date: 09/02/2005 17:28 By the signature above, the attending physician certif ies that he/she has personally conducted a gross and/or microscopic examin ation of the described specimens and rendered or confirmed the above diagnosi s. Specimen(s) Received: ? Rectal polyps Clinical History: ? Screening colonoscopy Gross Description: ? Received in Hollande' s fixative labelled Joya and #1 ??rectal polyp are three fragments of soft tissue ranging in si ze from 0.5 x 0.3 x 0.2 cm to 0.2 x 0.2 x 0.2 cm, which are entirely submitted in on e cassette. ??Richie Mcleod)/[facility] End of Report Specimen Performing Organization Address City/State/ZIP Code Phon e Number [facility] [address] [place] [address] SERVICES [facility] [address] [place] [address] documented in this encounter Visit Diagnoses Not on filedocumented in this encounter
--- OUTSIDE RECORDS SUMMARY | 2021-11-18 01:17 | XMS_ITS | Encounter Summary ---
:1950 Author Organization [facility] Address [address] [place] [address] Care Team Providers Name Role Phone Zoila Posadas METAL FURNITURE PANEL COVERER Primary Care Provider Encounter Details Date Type Department Care Team Description 05/24/2019 Lab Requisition [facility] Unknown, Provider, Pathology & Laboratory [facility] [address] [facility] [place] [address] Social History Tobacco Use Types Packs/Day Years Used Date Never Assessed Sex Assigned at Date Recorded Not on file documented as of this encounter Plan of Treatment Not on filedocumented as of this encounter Procedures Procedure Name Priority Date/Time Associated Diagnosis Comme nts PTH INTACT Routine 05/24/2019 8:44 EST Results for this procedure are i n the results section . documented in this encounter Results PTH INTACT (05/24/2019 8:44 EST) Pathologist Sig nature Intact PTH 75 19 - 88 pg/mL [facility] Specimen Blood - Venous blood (substance) Performing Organization Address City/State/ZIP Code Phon e Number [facility] [address] [place] [address] SERVICES documented in this encounter Visit Diagnoses Not on filedocumented in this encounter Care Teams Health Assistant Relationship Specialty Start Date End Date Zoila Posadas, METAL FURNITURE PANEL COVERER PCP - General 07/18/15 documented as of this encounter
--- OUTSIDE RECORDS SUMMARY | 2021-11-18 01:17 | XMS_ITS | Encounter Summary ---
:1950 Author Organization [facility] Address [address] [place] [address] Care Team Providers Name Role Phone Unavailable Primary Care Provider Unavailable Encounter Details Date Type Department Care Team Description 06/20/2013 Results Only [facility] Tracy Polanco MD Laboratory Services - Kristal [address] [place] [address] [address] [facility] [place] [address] [phone] Social History Tobacco Use Types Packs/Day Years Used Date Never Assessed Sex Assigned at Date Recorded Not on file documented as of this encounter Plan of Treatment Not on filedocumented as of this encounter Procedures Procedure Name Priority Date/Time Associated Diagnosis Comme nts PAP TEST- RESULT Routine 06/20/2013 0:00 EST Resu lts for this ONLY procedure are i n the results section. documented in this encounter Results PAP TEST- RESULT ONLY (06/20/2013 0:00 EST) Pathology Report: CYTOPATHOLOGY REPORT [facility] Reports generated via electronic interface contain mateo ginal data; however they are lacking the format of the original re port. Caution should be taken when reading/interpreting unfo rmatted reports. Name: ? AC OTERO ? Accession #: ? [id number] ? : ? 1950 (Age: 63) ??F ?Collect Da te: ? 06/20/2013 ? Location: ? [facility] ? Receive Date: ? 014 ? Provider: JACKY POLANCO MD Copy to: ? Final Report SPECIMEN ADEQUACY ? Satisfactory for Evaluation - transformation zone component present - scant squamous epithelial component secondary to exc essive inflammation GENERAL CATEGORIZATION ? Negative for Intraepithelial Lesion or Malignan cy ?? Menstrual/ Status: ??Post Menopausal Hormonal/Contraceptive status: Tubal ligation Specimen/Source: ??Pap Test, Cervix/Endocervix, ThinPr ep Imaging System with manual evaluation Document reviewed and electronically signed by: ? Pearl Ladd, PIPO(ASCP) ? Report ??Date: 06/26/2013 11:39 HPV with Pap Test ? Date Ordered: ? 06/26/2013 ? Status: ?? Signed Out ?Date Complete: ? 06/28/2013 ? By: ??S ystem Interface ? Date Reported: ? 06/28/2013 ? Interpretation RESULT: Negative for HPV. No E6 or E7 mRNA is detected from HPV types 16,18,31,3 3,35, 39,45,51,52,56,58,59,66, and 68 by green chain off bearer media karin amplification. Comments Document reviewed and electronically signed by: ? System Interface ? Report date: 06/28/2013 By the signature above, the attending physician certif ies that he/she has personally conducted a gross and/or microscopic examin ation of the described specimens and rendered or confirmed the above diagnosi s. End of Report Specimen Performing Organization Address City/State/ZIP Code Phon e Number [facility] [address] [place] [address] SERVICES [facility] [address] [place] [address] documented in this encounter Visit Diagnoses Not on filedocumented in this encounter
--- OUTSIDE RECORDS SUMMARY | 2021-11-18 01:17 | XMS_ITS | Encounter Summary ---
:1950 Author Organization [facility] Address [address] [place] [address] Care Team Providers Name Role Phone Noemy Patterson MD Primary Care Provider Encounter Details Date Type Department Care Team Description 07/15/2015 Hospital Encounter [facility] - S Unknown, Pro Keanu rivera MD 1 [facility] [phone] [place] [address] (Work) [phone] Social History Tobacco Use Types Packs/Day Years Used Date Never Assessed Sex Assigned at Date Recorded Not on file documented as of this encounter Discharge Disposition Disposition Code Departure Means Destination Home or Self Long-Term documented in this encounter Plan of Treatment Not on filedocumented as of this encounter Visit Diagnoses Not on filedocumented in this encounter Care Teams Machine Ii Engraver Relationship Specialty Start Date End Date Noemy Patterson MD PCP - General 08/07/13 07/17/15 [address] [place], [place] [id number] documented as of this encounter
--- OUTSIDE RECORDS SUMMARY | 2021-11-18 01:17 | XMS_ITS | Encounter Summary ---
:1950 Author Organization [facility] Address [address] [place] [address] Care Team Providers Name Role Phone Unavailable Primary Care Provider Unavailable Encounter Details Date Type Department Care Team Description 08/02/2013 Hospital Encounter [facility] - S Unknown, Pro Keanu rivera MD 1 [facility] [phone] [place] [address] (Work) [phone] Social History Tobacco Use Types Packs/Day Years Used Date Never Assessed Sex Assigned at Date Recorded Not on file documented as of this encounter Discharge Disposition Disposition Code Departure Means Destination Home or Self [facility] documented in this encounter Plan of Treatment Not on filedocumented as of this encounter Visit Diagnoses Not on filedocumented in this encounter
--- OUTSIDE RECORDS SUMMARY | 2021-11-18 01:17 | XMS_ITS | Encounter Summary ---
:1950 Author Organization [facility] Address [address] [place] [address] Care Team Providers Name Role Phone Unavailable Primary Care Provider Unavailable Encounter Details Date Type Department Care Team Description 08/02/2013 Results Only [facility] Laboratory Yolanda Rosenbaum am, [place] Services - Kristal All en [address] [address] Social History Tobacco Use Types Packs/Day Years Used Date Never Assessed Sex Assigned at Date Recorded Not on file documented as of this encounter Plan of Treatment Not on filedocumented as of this encounter Procedures Procedure Name Priority Date/Time Associated Diagnosis Comme nts SURGICAL PATHOLOGY Routine 08/02/2013 9:26 EDT Re sults for this procedure are i n the results section. documented in this encounter Results SURGICAL PATHOLOGY (08/02/2013 9:26 EDT) Pathology Report: SURGICAL PATHOLOGY REPORT [facility]ST[facility] Reports generated via electronic interface contain mateo ginal data; LAB however they are lacking the format of the original re port. Caution should be taken when reading/interpreting unfo rmatted reports. Name: ? AC OTERO ? Accession #: ? [id number] ? : ? 1950 (Age: 63) ??F ? Collect Date: ? 08/02/2013 ? Location: ? [facility] ? Receive Date: ? 014 ? Provider: LOTUS LAMBERT Copy to: ? Final Pathologic Diagnosis: SKIN OF LABIA, LEFT, PUNCH BIOPSY: - Lichen sclerosus et atrophicus. ??See microscopic an d comment. Comment: The features are those of lichen sclerosus et atrophic us. ??The dermis shows sclerosis admixed with edema . ??Dysplasia is not identified. ??(Dr. Ordoñez)/alisson Microscopic Description: There is compact orthohyperk eratosis. ??The epidermis varies in thickness but has a generally diminished rete ridge pattern. ??There is interface vacuolar change with exocytosis of lymphocytes into the lower po rtion of the epidermis. ??The keratinocytes have mild reactive nuclear changes but g enerally mature in an construction or leak gang laborer fashion. ??The super ficial dermis is edematous with areas of sclerosus. There is a band-like infiltrate of lymphomononuc lear cells within the dermis. (Dr. Ordoñez)/alisson Document reviewed and electronically signed by: FREDY ORDOÑEZ MD Report ??Date: 08/06/2013 13:07 By the signature above, the attending physician certif ies that he/she has personally conducted a gross and/or microscopic examin ation of the described specimens and rendered or confirmed the above diagnosi s. Specimen(s) Received: L labsiddharth Clinical History: Red, denuded epithelium; sloughing border Gross Description: ? Received in formalin labelled with proper patient identification (initials M, M) and L labia is a pun ch biopsy of white skin (0.3 cm in diameter and 0.2 cm in thickness). Submitted intact in 1. Lena Georges 08/03/2013 10:42 AM End of Report Specimen Performing Organization Address City/State/ZIP Code Phon e Number [facility] [address] [place] [address] SERVICES [facility] [address] [place] [address] documented in this encounter Visit Diagnoses Not on filedocumented in this encounter
== END 2021-11-18 01:12 | disposition home or self-care (01) ==
LOC: LOS 01:13
PROVIDERS: PCP Nurse Practitioner Family; Visit Provider Nurse Practitioner Family

== ENCOUNTER 2021-11-19 08:50 | Outpatient (CLI) | payer MEDICARE, OTHER, SELFPAY ==
[2021-11-19 14:12] LABS: Anion Gap 10.5 mmol/L (3-11); BUN 25 mg/dL (7-18); CO2 28.5 mmol/L (21.0-32.0); CREATININE 0.8 mg/dL (0.55-1.02); Calcium 9.4 mg/dL (8.5-10.1); Chloride 100 mmol/L (98-107); Glucose 107 mg/dL (74-106); Potassium 3.8 mmol/L (3.5-5.1); Sodium 139 mmol/L (136-145)
== END 2021-11-19 08:51 | disposition home or self-care (01) ==
LOC: LOS 08:51
PROVIDERS: PCP Nurse Practitioner Family; Visit Provider Nurse Practitioner Family
DX: I10 Essential (primary) hypertension (principal)
CPT/HCPCS: 36415; 80048

== ENCOUNTER 2022-04-15 02:59 | Outpatient (CLI) | payer MEDICARE, OTHER, SELFPAY ==
[2022-04-15 12:36] LABS: CREATININE 0.8 mg/dL (0.55-1.02); Calculated LDL 67 mg/dL (<100); Cholesterol 162 mg/dL (<200); Estimated GFR 77.27 (mL/min/1.73m2); HDL Cholesterol 65 mg/dL (40-60); Potassium 3.4 mmol/L (3.5-5.1); Triglyceride 151 mg/dL (<150)
== END 2022-04-15 03:00 | disposition home or self-care (01) ==
LOC: LOS 02:59
PROVIDERS: PCP Nurse Practitioner Family; Visit Provider Nurse Practitioner Family
DX: I10 Essential (primary) hypertension (principal); E78.5 Hyperlipidemia, unspecified
CPT/HCPCS: 36415; 80061; 82565; 84132

== ENCOUNTER 2022-06-03 15:45 | Outpatient (CLI) | payer MEDICARE, OTHER, SELFPAY ==
--- NOTE | 2022-06-03 15:15 | DI.MAMMO_ITS ---
Exam(s) MAMMO SCREENING EXAM: MAMMO SCREENING CLINICAL HISTORY: screening mammo z12.39 TECHNIQUE: Mammograms were interpreted according to the usual protocol including computer analysis w [employer] CAD system, tomosynthesis and C-view imaging. COMPARISON: through 2019 FINDINGS: The breasts are composed of scattered fibroglandular densities, Breast Density category B. No suspicious masses or suspicious microcalcifications are seen. No skin thickening or abnormal axillary lymph nodes are seen. There has been no significant change from prior exams. IMPRESSION: BI-RADS Category 1, Negative mammogram Yearly screening mammography is recommended. Breast Density - Category B, scattered fibroglandular densities. A negative radiographic report should not delay biopsy if a dominant or clinically suspicious mass is present. Up to ten percent of cancers are not identified on mammography. A negative report may reinforce clinical impression. Adenosis and dense breasts may obscure an underlying neoplasm. False positive reports average 6 to 10%. Patient will receive a letter notifying them of these results.
== END 2022-06-03 16:05 ==
LOC: DI 15:45
PROVIDERS: PCP Nurse Practitioner Family; Visit Provider Nurse Practitioner Family
DX: Z12.31 Encounter for screening mammogram for malignant neoplasm of breast (principal)
CPT/HCPCS: 77063; 77067

== ENCOUNTER 2023-04-28 00:44 | Outpatient (CLI) | payer MEDICARE, OTHER, SELFPAY ==
[2023-04-28 12:39] LABS: CREATININE 0.8 mg/dL (0.55-1.02); Estimated GFR 76.79 (mL/min/1.73m2); Potassium 3.7 mmol/L (3.5-5.1)
== END 2023-04-28 00:45 | disposition home or self-care (01) ==
LOC: LOS 00:45
PROVIDERS: PCP Nurse Practitioner Family; Visit Provider Nurse Practitioner Family
DX: I10 Essential (primary) hypertension (principal)
CPT/HCPCS: 36415; 82565; 84132

== ENCOUNTER 2023-12-19 14:03 | Emergency (ER) | payer MEDICARE, OTHER, SELFPAY ==
--- NOTE | 2023-12-19 14:00 | DI.RAD_ITS ---
Exam(s) XR HIP RT COMPLETE AP PELVIS EXAM: XR HIP RT COMPLETE AP PELVIS CLINICAL HISTORY: RIGHT HIP PAIN. TECHNIQUE: 2D digital imaging was performed of the right hip. Two images were obtained. AP pelvis a nd lateral right hip views were obtained. COMPARISON: There are no priors for comparison. FINDINGS: BONES: No acute fracture is present. No bony destructive lesion is seen. JOINTS: No dislocation present. There is mild narrowing of the hip joints bilaterally. The sacroilia c joints are well maintained as is the symphysis pubis. There are degenerative changes seen in the l ower visualized lumbar spine. SOFT TISSUE: Normal. IMPRESSION: 1. Mild narrowing of the hip joints bilaterally. 2. No acute fracture or dislocation. 3. Degenerative changes seen in the lower lumbar spine. DATA REPOSITORY: RADIATION DOSE DELIVERED:
[2023-12-19 14:07] VITALS: BP 132/71; PULSE 86; RESP 12; TEMP 36.8; O2SAT 96
--- NOTE | 2023-12-19 14:21 | W.ED.GENAD ---
Discharge Plan Disposition Patient Disposition: Home Condition: Stable Discharge Details Clinical Impression: Acute pain of right hip, Fall Primary Care Provider: Raudel Jones ED Provider: Helen Ward Home Meds and New Rx's Prescriptions: No Action aspirin [Adult Low Dose Aspirin] 81 mg tablet,delayed release (DR/EC) 81 mg PO DAILY cholecalciferol (vitamin D3) 2,000 unit capsule 2,000 unit PO DAILY cyanocobalamin (vitamin B-12) [Vitamin B-12] 1,000 mcg tablet 1,000 mcg PO DAILY iron 18 mg tablet 18 mg PO DAILY albuterol sulfate [Ventolin HFA] 90 mcg/actuation HFA aerosol inhaler 1 - 2 puff IH Q4H PRN (Reason: shortness of breath or wheezing) Qty: 8.5 0RF ascorbic acid (vitamin C) 100 mg tablet 100 mg PO DAILY meloxicam 15 mg tablet 15 mg PO DAILY Qty: 90 3RF clobetasol-emollient 0.05 % cream 1 applic TP BID PRN (Reason: rash) Qty: 45 3RF atorvastatin 40 mg tablet 40 mg PO QHS Qty: 90 3RF lisinopril 40 mg tablet 40 mg PO DAILY Qty: 90 3RF hydrochlorothiazide 25 mg tablet 25 mg PO QAM Qty: 90 4RF gabapentin 100 mg capsule 200 mg PO QHS Qty: 180 3RF Discharge Instructions Instructions: Hip Pain ED Additional Instructions: Continue Motrin and Tylenol as needed for pain use the walker as needed to bear weight as tolerated and to assist with ambulation If your symptoms do not significantly improved back to normal in the next few days, please follow-up for reevaluation with your PCP or with the emergency department HPI General Date/Time Provider Initiated Documentation: 12/19/23 14:13. Limitations to Documentation: no limitations. Information obtained by: patient. HPI Narrative: 73-year-old female with past medical history of hypertension presents for evaluation of right hip pain. She reports earlier this morning she tripped over a dog toy and landed in the splits on her right hip. She reports immediate onset of pain. She did call 911 and EMS came and helped her up. She did not want to be transferred to the hospital. She states that she is unable to walk up her stairs. She states that she is able to put some weight on the right leg, but has been using a chair to help assist with walking. The patient reports pain in the outside of her right hip. She is also got some pain in the right lower leg she has not taken any pain medication prior to arrival. Related Data Home Medications ?Medication ?Instructions ?Recorded ?Confirmed aspirin 81 mg tablet,delayed 81 mg PO DAILY 01/11/18 12/19/23 release (Adult Low Dose Aspirin) cholecalciferol (vitamin D3) 50 2,000 unit PO DAILY 01/11/18 12/19/23 mcg (2,000 unit) capsule cyanocobalamin (vitamin B-12) 1,000 mcg PO DAILY 01/11/18 12/19/23 1,000 mcg tablet (Vitamin B-12) iron 18 mg tablet 18 mg PO DAILY 01/11/18 12/19/23 albuterol sulfate 90 mcg/actuation 1 - 2 puff inhalation Q4H PRN 03/06/18 12/19/23 aerosol inhaler (Ventolin HFA) shortness of breath or wheezing #8.5 grams ascorbic acid (vitamin C) 100 mg 100 mg PO DAILY 12/26/18 12/19/23 tablet clobetasol-emollient 0.05 % 1 applic topical BID PRN rash #45 12/25/21 12/19/23 topical cream grams atorvastatin 40 mg tablet 40 mg PO QHS #90 tabs 08/11/22 12/19/23 meloxicam 15 mg tablet 15 mg PO DAILY #90 tabs 04/13/23 12/19/23 hydrochlorothiazide 25 mg tablet 25 mg PO QAM #90 tabs 05/05/23 12/19/23 lisinopril 40 mg tablet 40 mg PO DAILY #90 tabs 05/05/23 12/19/23 gabapentin 100 mg capsule 200 mg (2 x 100 mg) PO QHS #180 07/06/23 12/19/23 caps Previous Rx's ?Medication ?Instructions ?Recorded albuterol sulfate 90 mcg/actuation 1 - 2 puff inhalation Q4H PRN 03/06/18 aerosol inhaler (Ventolin HFA) shortness of breath or wheezing #8.5 grams clobetasol-emollient 0.05 % 1 applic topical BID PRN rash #45 12/25/21 topical cream grams atorvastatin 40 mg tablet 40 mg PO QHS #90 tabs 08/11/22 meloxicam 15 mg tablet 15 mg PO DAILY #90 tabs 04/13/23 hydrochlorothiazide 25 mg tablet 25 mg PO QAM #90 tabs 05/05/23 lisinopril 40 mg tablet 40 mg PO DAILY #90 tabs 05/05/23 gabapentin 100 mg capsule 200 mg (2 x 100 mg) PO QHS #180 07/06/23 caps Allergies Allergy/AdvReac Type Severity Reaction Status Date / Time No Known Allergies Allergy Verified 12/19/23 14:36 General Stated Complaint: Orthopedic COLLIN: 4 Exam Narrative Exam Narrative: Review of Systems: All systems reviewed & are unremarkable except as noted in HPI and below Examination limited as the patient is in a room that does not have a stretcher Well-developed, no acute distress NCAT PERRL, normal conjunctiva RRR Unlabored respiratory effort No inguinal pain, pain palpable on the right lateral hip and right posterior hip, no knee pain or instability, some pain in the mid tibia of the right Course Vital Signs Vital signs: Vital Signs Temperature 36.8 C 12/19/23 14:07 Pulse 86 12/19/23 14:07 Respiratory Rate 12 12/19/23 14:07 Blood Pressure 132/71 12/19/23 14:07 Pulse Oximetry 96 12/19/23 14:07 Temperature 36.8 C 12/19/23 14:07 Temperature Source Temporal Artery Scan 12/19/23 14:07 Pulse 86 12/19/23 14:07 Respiratory Rate 12 12/19/23 14:07 Blood Pressure 132/71 12/19/23 14:07 Pulse Oximetry 96 12/19/23 14:07 Oxygen Delivery Method Room Air 12/19/23 14:07 Oxygen Flow Rate 0 12/19/23 14:07 Pain Level 5 12/19/23 14:07 Medical Decision Making Emergent evaluation of right hip pain after a fall. There is no head trauma or other injuries during the fall. She did sustain right hip trauma and has been attempting ambulation since that time, but having significant difficulty. She is very tender to palpation on examination and I have a high suspicion for fracture. Unfortunately at this time, the only room available to evaluate the patient has a chair, but not stretcher some not able to fully evaluate the patient have requested that the patient be moved to a stretcher bed when available. In the interim, will get imaging of the areas of concern as well as give pain medication. 1800 XR imaging negative for fracture but patient unable to ambulate independently. so a CT has been ordered. Discussed CT findings with the radiologist. There does not appear to be an acute fracture. Patient reports that she is feeling better but still has difficulty with full weightbearing and ambulation. She does not want any additional imaging. I advised doing Motrin and Tylenol at home and she will use a walker at home for assisted ambulation. She understands to return if her symptoms or not improving she would likely need additional imaging such as an MRI to fully and further evaluate any causes of her ongoing pain after her fall. 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 Will repeat lipid panel CMP 3 months time and recheck in 3 months. 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) Surgical History History of bilateral ligation of fallopian tubes History of umbilical hernia repair Status post inguinal hernia repair Ligation of fallopian tube Parathyroidectomy 01/16 [facility] [place]OWER Repair of umbilical hernia Repair of inguinal hernia LEFT Family History Mother , 94 Hyperlipidemia Colon cancer Father , 80 Essential hypertension Heart disease ASHD Hyperlipidemia Asthma Sister , 74 Diabetes Essential hypertension Heart disease Hyperlipidemia Uterine cancer Brother , 80 Colon cancer Grandmother Neoplasm Brother Essential hypertension Hyperlipidemia Pancreatic cancer Brother Hyperlipidemia Colon cancer Son Alcohol abuse Substance abuse Son Hyperlipidemia Heart disease Daughter Substance abuse Social History Smoking/Tobacco Use Status: Never Second Hand Exposure: No Smoking risk assessment performed?: Yes Alcohol Intake: current Alcohol Intake frequency: holidays/special occasions only Alcohol type: wine Caregiver/Support person: No Household members: spouse Housing: house Do you need help understanding health information?: Rarely Pets and animals: Yes Pets and animals: cat(s) and dog(s) Do you think of yourself as: straight/heterosexual Current gender identity: female What is your relationship status?: How often do you talk on the phone with friends or family?: decline to answer How often do you get together with friends or relatives?: decline to answer How often do you attend protestant or baptism services?: 4 or more times per year Do you belong to any clubs or organized social groups?: decline to answer Panel score (0-1 are the most socially isolated patients): 2 Elizabeth/Church: Restorationism Special elizabeth needs: Yes (NO BLOOD TRANSFUSIONS) Agree to transfusion: No Seatbelt use: always Helmet use: No Drive intox or ride w/intox local intermodal truck driver: No Do you feel safe in your relationship?: Yes
[2023-12-19] MEDS: Acetaminophen 500 MG TAB 1000 MG PO (14:30)
--- NOTE | 2023-12-19 16:57 | DI.RAD_ITS ---
Exam(s) XR TIB/FIB RT EXAM: XR TIB/FIB RT CLINICAL HISTORY: LEG PAIN. TECHNIQUE: 2D digital imaging was performed of the right tibia and fibula. Two images were obtained. AP and lateral views were obtained. COMPARISON: No exams were available for comparison FINDINGS: BONES: No acute fracture is present. No bony destructive lesion is seen. Visualized portion of knee a nd ankle joints are unremarkable. SOFT TISSUE: Normal. IMPRESSION: Unremarkable radiographs of the right tibia and fibula. DATA REPOSITORY: RADIATION DOSE DELIVERED:
--- NOTE | 2023-12-19 18:13 | DI.CT_ITS ---
Exam(s) CT PELVIC WO EXAM: CT PELVIC WO CLINICAL HISTORY: hip pain. TECHNIQUE: Imaging Protocol: Axial computed tomography images with coronal and sagittal reformatted images were created and reviewed. COMPARISON: CR XR HIP RT COMPLETE AP PELVIS from 12/19/2023 FINDINGS: Bones: The osseous structures and articular surfaces are intact. Bony alignment is satisfactory. N o cellulitic or osteomyelitic changes are identified. There are degenerative changes seen in the lum bar spine. No lytic or sclerotic lesions are identified. Soft Tissues: There is a small fat containing umbilical hernia. IMPRESSION: 1. No acute fractures identified. If symptoms persist an MRI of the hip should be considered for fur ther evaluation. 2. Findings were discussed with Dr. Ward at 6:47 p.m. on 12/19/2023. RADIATION DOSE DELIVERED: Total DLP Total DLP DATA REPOSITORY: All CT scans at this facility are submitted to the National Radiology Data Registry (NRDR) Dose Index Registry (DIR) with the [employer] ([employer]). RADIATION OPTIMIZATION: All CT scans at this facility use at least one of these dose optimization te chniques: automated exposure control; mA and/or kV adjustment per patient size (includes targeted exa ms where dose is matched to clinical indication); or iterative reconstruction.
[2023-12-19 18:28] VITALS: BP 122/77; PULSE 77; RESP 16; TEMP 36.7; O2SAT 94
[2023-12-19 19:10] VITALS: BP 120/64; PULSE 81; RESP 15; O2SAT 96
== END 2023-12-19 19:12 | disposition home or self-care (01) ==
PROVIDERS: Emergency Provider Emergency Medicine; PCP Nurse Practitioner Family
DX: M25.551 Pain in right hip (principal); W01.0XXA Fall on same level from slipping, tripping and stumbling without subsequent striking against object, initial encounter
CPT/HCPCS: 99284; 72192; 73502; 73590; 99283

== ENCOUNTER 2024-02-29 01:33 | Outpatient (CLI) | payer MEDICARE, OTHER, SELFPAY ==
[2024-02-29 12:25] LABS: HCT 32.3 % (36.0-46.0); MCH 26.1 pg (27.0-33.0); MCV 84 fL (80-95); MPV 10.9 fL (8.0-11.0); Platelet Count 269 10^3/uL (130-400); RBC 3.83 10^6/uL (3.93-5.22); RDW-SD 52.7 fL; WBC 7.01 10^3/uL (4.4-10.8)
[2024-02-29 13:07] LABS: ALT 19 U/L (14-59); AST 32 U/L (15-37); Albumin 3.6 g/dL (3.4-5.0); Alkaline Phosphatase 90 U/L (46-116); BUN 21 mg/dL (7-18); Bilirubin, Total 0.28 mg/dL (0.2-1.0); CREATININE 0.8 mg/dL (0.55-1.02); Calcium 9.5 mg/dL (8.5-10.1); Chloride 104 mmol/L (98-107); Estimated GFR 76.31 (mL/min/1.73m2); Glucose 105 mg/dL (74-106); Potassium 3.5 mmol/L (3.5-5.1); Sodium 143 mmol/L (136-145); Total Protein 7.2 g/dL (6.4-8.2); Vitamin B12 1801 pg/mL (193-986)
== END 2024-02-29 01:34 | disposition home or self-care (01) ==
LOC: LOS 01:33
PROVIDERS: PCP Nurse Practitioner Family; Visit Provider Nurse Practitioner Family
DX: K92.1 Melena (principal); E53.8 Deficiency of other specified B group vitamins
CPT/HCPCS: 36415; 80053; 85027; 82607